=== PATIENT | female | born 1945 | race Caucasian/White ===

== ENCOUNTER → 2017-03-30 | Outpatient (CLI) | payer BC ==
[~2017-03-30] MED LIST: CALCTAB5 PO; CLRD24 PO; GLC5 PO; GLC500 PO; LISI5TAB3 PO; LRT5 PO; OCUVITE PO
--- NOTE | 2017-03-30 15:39 | MAMMOGRAPHY REPORT ---
BILATERAL DIGITAL SCREENING MAMMOGRAM WITH CAD: 03/30/2017 CLINICAL HISTORY: Routine screening. Patient has no complaints. TECHNIQUE: Bilateral CC and MLO views were obtained. Current study was also evaluated with a Comput er Aided Detection (CAD) system. COMPARISON: Comparison is made to exams dated: 03/17/2016 mammogram, 03/14/2015 mammogram, 03/05/2014 ma mmogram, 03/02/2013 mammogram, 03/01/2012 mammogram, and 02/26/2011 mammogram - [facility]. BREAST COMPOSITION: There are scattered areas of fibroglandular density in both breasts. FINDINGS: The parenchymal pattern is unchanged. No developing mass, architectural distortion or clus ter of suspicious microcalcifications is seen in either breast. No suspicious mass, architectural distortion or cluster of microcalcifications is seen. IMPRESSION: ACR BI-RADS CATEGORY 2: BENIGN There is no mammographic evidence of malignancy. A 1 year screening mammogram is recommended. The pa tient will receive written notification of the results. Approximately 10% of breast cancers are not detected with mammography. A negative mammographic report should not delay biopsy if a clinically suggestive mass is present. Yvonne Ricks M.D. ay/:03/30/2017 13:46:48 Hotel Associate: Jeanna CHINO(R)(M), [facility] letter sent: Normal 1/2 BI-RADS Code: ACR BI-RADS Category 2: Benign
== END | disposition home or self-care (01) ==
LOC: C.MAMM 10:53
PROVIDERS: ATTEND Obstetrics & Gynecology
DX: Z12.31 Encounter for screening mammogram for malignant neoplasm of breast (principal)

== ENCOUNTER → 2017-08-23 | Outpatient (CLI) | payer BC | END | disposition home or self-care (01) | LOC: C.PAPS 14:28 | PROVIDERS: ATTEND Obstetrics & Gynecology | DX: N87.0 Mild cervical dysplasia (principal) ==

== ENCOUNTER → 2017-09-06 | Day surgery (SDC) | payer BC ==
[2017-09-03 11:59] VITALS: BMI 24.0
[~2017-09-06] VITALS: Ht 175.3 cm; Wt 75.0 kg
[~2017-09-06] MED LIST changes: +ASPCH81X PO; +ATOR-22 PO; -CALCTAB5 PO; -CLRD24 PO; +CYAN500T13 PO; +DOCU-94 PO; +FENTANYL CITRATE INJ 50 MCG/1 ML 2 ML VIAL ONE; +FERR1TAB62 PO; -GLC5 PO; -GLC500 PO; +HYDR200T5 PO; +LIDOCAINE HCL 2% 2 ML VIAL (20MG/ML) ONE; +LISI-729 PO; -LISI5TAB3 PO; -LRT5 PO; +MECL1TAB42 PO; +METF-384 PO; +MINO5SOL6; +MULT-188 PO; +NAPR-1169 PO; -OCUVITE PO; +ONDA4TAB46 PO; +ONDANSETRON INJ 2 MG/ML 2 ML VIAL IV PRN; +PRED-301 PO; +PROPOFOL IV EMULSION 10 MG/ML 20 ML VIAL IV ONE; +REPA2TAB12 PO; +SITA100T3 PO; +TEMA15CA4 PO; +TRAM-10 PO; +VNTHFA/IN INH
[2017-09-06 08:07] VITALS: Ht 175.3 cm; Wt 75.0 kg
--- NOTE | 2017-09-06 08:33 | Endo History and Physical ---
History & Physical Date of Service: Sep 06, 2017. Chief Complaint: Anemia Referring Physician: Dr. coats History of Present Illness The patient presents for history of iron deficiency anemia. Her last colonoscopy was performed in 2008. Last upper endoscopy about 5 years ago. There is no family history of colorectal or stomach cancer. There is a family history of Styles's esophagus with a question of dysplasia and her brother. Past Surgical History Hx Cardiac Surgery: No Hx Internal Defibrillator: No Hx Pacemaker: No Hx Abdominal Surgery: Yes (CONIZATION, APPY) Hx of Implantable Prosthesis: No Hx Post-Op Nausea and Vomiting: No Hx Cancer Surgery: No Hx Thoracic Surgery: No Hx Orthopedic: Yes (LEFT WRIST NERVE REPAIR) Hx Urinary Tract Surgery: No Family History None Social History Smoking Status: Former Smoker Hx Substance Use: No Hx Alcohol Use: No Allergies Coded Allergies: Latex1 -Allergic Contact Dermititis (Verified Allergy, Unknown, SWELLING WITH MUCOUS MEMBRANES, 09/06/17) Sulfa Drugs (Verified Allergy, Unknown, "COMING OUT THROUGH MY PORES", 09/06/17) Current Medications Reported Home Medications Medications Dose Route/Sig Max Daily Dose Days Date Category Ferrous Sulfate 325 Mg Tab 1 Tab PO QAM 09/03/17 Reported Rogaine Extra Strength Fo (Minoxidil (Topical)) 5 % Radha 1 Dose PRN 09/03/17 Reported Prandin (Repaglinide) 2 Mg Tab 2 Mg PO QPM 09/03/17 Reported Aspirin Chewable (Aspirin) 81 Mg Chew 81 Mg PO QAM 09/03/17 Reported Vitamin B12 500MCG (Cyanocobalamin) 500 Mcg Tab 500 Mcg PO DAILY AT NOON 09/03/17 Reported Zofran (Ondansetron HCl) 4 Mg Tab 4 Mg PO Q8H PRN 09/03/17 Reported Restoril (Temazepam) 15 Mg Cap 15 Mg PO HS PRN 09/03/17 Reported Colace (Docusate Sodium) 100 Mg Cap 1 Cap PO BID 09/03/17 Reported Glucophage (Metformin Hcl) 1,000 Mg Tab 1,000 Mg PO BID 09/03/17 Reported Prednisone 5 Mg Tab 5 Mg PO DAILY PRN 09/03/17 Reported Januvia (Sitagliptin Phosphate) 100 Mg Tab 100 Mg PO QAM 09/03/17 Reported Plaquenil (Hydroxychloroquine Sulfate) 200 Mg Tab 2 Tab PO QPM 09/03/17 Reported Ultram (Tramadol HCl) 50 Mg Tab 25 Mg PO BID 09/03/17 Reported Meclizine Hcl 25 Mg Tab 1 Tab PO TID PRN 09/03/17 Reported Naprosyn (Naproxen) 500 Mg Tab 0.5 Tab PO BID 09/03/17 Reported Zestril (Lisinopril) 5 Mg Tab 5 Mg PO DAILY AT NOON 09/03/17 Reported Lipitor (Atorvastatin Calcium) 20 Mg Tab 20 Mg PO DAILY AT NOON 09/03/17 Reported Ventolin Hfa (Albuterol) 200 Puffs/67749 Mcg Aers 2-4 Puffs INH Q6H PRN 09/03/17 Reported Vital Signs Weight (Kilograms): 75.00 Height (Feet): 5 Height (Inches): 9 Date Time Temp Pulse Resp B/P (MAP) Pulse Ox O2 Delivery O2 Flow Rate FiO2 09/06/17 08:21 36.6 97 20 175/77 (109) 100 Room Air Physical Exam General Appearance: no apparent distress Respiratory/Chest: Auscultation: breath sounds normal Cardiovascular: Heart Auscultation: RRR Abdomen: Inspection & Palpation: soft Assessment and Plan Patient referred for evaluation of anemia. Given the iron deficiency will proceed with an upper endoscopy and colonoscopy for further evaluation. We have discussed the risks to include bleeding, infection, perforation, pain and aspiration. Plan EGD Colonoscopy
--- NOTE | 2017-09-06 09:13 | Discharge Instructions ---
Endoscopy Patient Instructions Date / Procedure(s) Performed Sep 06, 2017. Colonoscopy, EGD Allergy Information Coded Allergies: Latex1 -Allergic Contact Dermititis (Verified Allergy, Unknown, SWELLING WITH MUCOUS MEMBRANES, 09/06/17) Sulfa Drugs (Verified Allergy, Unknown, "COMING OUT THROUGH MY PORES", 09/06/17) Discharge Date / Findings Sep 06, 2017. Internal hemorrhoids Mild gastritis Medication Instructions Stopped Medication(s): STOPPED METFORMIN IRON ASA Restart Stopped Medication(s): Reported Home Medications Medications Dose Route/Sig Max Daily Dose Days Date Category Ferrous Sulfate 325 Mg Tab 1 Tab PO QAM 09/03/17 Reported Rogaine Extra Strength Fo (Minoxidil (Topical)) 5 % Radha 1 Dose PRN 09/03/17 Reported Prandin (Repaglinide) 2 Mg Tab 2 Mg PO QPM 09/03/17 Reported Aspirin Chewable (Aspirin) 81 Mg Chew 81 Mg PO QAM 09/03/17 Reported Vitamin B12 500MCG (Cyanocobalamin) 500 Mcg Tab 500 Mcg PO DAILY AT NOON 09/03/17 Reported Zofran (Ondansetron HCl) 4 Mg Tab 4 Mg PO Q8H PRN 09/03/17 Reported Restoril (Temazepam) 15 Mg Cap 15 Mg PO HS PRN 09/03/17 Reported Colace (Docusate Sodium) 100 Mg Cap 1 Cap PO BID 09/03/17 Reported Glucophage (Metformin Hcl) 1,000 Mg Tab 1,000 Mg PO BID 09/03/17 Reported Prednisone 5 Mg Tab 5 Mg PO DAILY PRN 09/03/17 Reported Januvia (Sitagliptin Phosphate) 100 Mg Tab 100 Mg PO QAM 09/03/17 Reported Plaquenil (Hydroxychloroquine Sulfate) 200 Mg Tab 2 Tab PO QPM 09/03/17 Reported Ultram (Tramadol HCl) 50 Mg Tab 25 Mg PO BID 09/03/17 Reported Meclizine Hcl 25 Mg Tab 1 Tab PO TID PRN 09/03/17 Reported Naprosyn (Naproxen) 500 Mg Tab 0.5 Tab PO BID 09/03/17 Reported Zestril (Lisinopril) 5 Mg Tab 5 Mg PO DAILY AT NOON 09/03/17 Reported Lipitor (Atorvastatin Calcium) 20 Mg Tab 20 Mg PO DAILY AT NOON 09/03/17 Reported Ventolin Hfa (Albuterol) 200 Puffs/40013 Mcg Aers 2-4 Puffs INH Q6H PRN 09/03/17 Reported Provider Instructions Activity Restrictions - No exercising or heavy lifting for 24 hours. - Do not drink alcohol the day of the procedure. - Do not drive a car or operate machinery until the day after the procedure. - Do not make any important decisions or sign important papers in 24 hours after the procedure. Following Day: - Return to full activity which may include returning to work/school. Diet Start your diet with liquids and light foods (jello, soup, juice, toast). Then eat your usual diet if not nauseated. Treatment For Common After Affects For mild abdominal pain, bloating, or excessive gas: - Rest - Eat lightly - Lie on right side Follow-Up Information Follow-up with DR. LANGLEY for monitoring of your blood count No evidence of gastrointestinal bleeding seen today CT of the abdomen to evaluate for small bowel lesions or masses Anesthesia Information What You Should Know You have had a procedure that required some medicine to reduce anxiety and discomfort. This treatment is called moderate sedation. After receiving the treatment, you may be sleepy, but you will be able to breathe on your own. The effects of the treatment may last for several hours. Follow these instructions along with Activity/Diet recommendations noted above: * Do NOT do anything where dizziness or clumsiness would be dangerous. * Rest quietly at home today, then you can be up and about tomorrow. * Have a responsible person stay with you the rest of today. * You may have had an I.V. today. If so, you may take the dressing off later today. Recommendations Call your doctor if: * Trouble breathing * Continuous vomiting for more than 24 hours * Temperature above 101 degrees * Severe abdominal pain or bloating * Pain not relieved by pain medicine ordered * There is increased drainage or redness from any incision * A large amount of rectal bleeding greater than 2-3 tablespoons. (If you had a polyp/s removed or have hemorrhoids, a small amount of blood - from the rectum is to be expected.) * You have any unanswered questions or concerns. IN THE EVENT OF A SERIOUS EMERGENCY, GO TO THE NEAREST EMERGENCY ROOM Your discharge instructions were prepared by provider Kana Garcia. Patient Instructions Signature Page Jayy Wakefield Patient (or Guardian) Signature/Date: I have read and understand the instructions given to me by my caregivers. Caregiver/RN/Doctor Signature/Date: The above-named patient and/or guardian has received patient instructions on this date. + Original Patient Signature Page (only) stays with chart. Please make copy for patient.
--- NOTE | 2017-09-06 09:16 | GI REPORT ---
Procedure Date: 09/06/2017 8:42 AM Procedure: Upper GI endoscopy Indications: Iron deficiency anemia Medicines: Monitored Anesthesia Care Complications: No immediate complications. Estimated blood loss: Minimal. Estimated Blood Loss: Estimated blood loss was minimal. Procedure: Pre-Anesthesia Assessment: - Prior to the procedure, a History and Physical was performed, and patient medications, allergies and sensitivities were reviewed. The patient's tolerance of previous anesthesia was reviewed. - The risks and benefits of the procedure and the sedation options and risks were discussed with the patient. All questions were answered and informed consent was obtained. - Patient identification and proposed procedure were verified prior to the procedure by the physician, the nurse and the collar baster. The procedure was verified in the procedure room. - Pre-procedure physical examination revealed no contraindications to sedation. - ASA Grade Assessment: III - A patient with severe systemic disease. - After reviewing the risks and benefits, the patient was deemed in satisfactory condition to undergo the procedure. - The anesthesia plan was to use monitored anesthesia care (MAC). - Immediately prior to administration of medications, the patient was re-assessed for adequacy to receive sedatives. - The heart rate, respiratory rate, oxygen saturations, blood pressure, adequacy of pulmonary ventilation, and response to care were monitored throughout the procedure. - The physical status of the patient was re-assessed after the procedure. After obtaining informed consent, the endoscope was passed under direct vision. Throughout the procedure, the patient's blood pressure, pulse, and oxygen saturations were monitored continuously. The scope was introduced through the mouth, and advanced to the third part of duodenum. The upper GI endoscopy was accomplished without difficulty. The patient tolerated the procedure well. Findings: The examined esophagus was normal. The Z-line was regular and was found 37 cm from the incisors. Diffuse minimal inflammation characterized by granularity was found in the entire examined stomach. Biopsies were taken with a cold forceps for histology. Estimated blood loss was minimal. The examined duodenum was normal. Biopsies for histology were taken with a cold forceps for evaluation of celiac disease. Estimated blood loss was minimal. Impression: - Normal esophagus. - Z-line regular, 37 cm from the incisors. - Gastritis. Biopsied. - Normal examined duodenum. Biopsied. Recommendation: - Perform a colonoscopy today. - Await pathology results. Kana Garcia D.O. Kana Garcia DO 09/06/2017 9:16:07 AM This report has been signed electronically. Note Initiated On: 09/06/2017 8:42 AM I attest to the content of the Intraoperative Record and orders documented therein, exceptions below
--- NOTE | 2017-09-06 09:19 | GI REPORT ---
Procedure Date: 09/06/2017 8:57 AM Procedure: Colonoscopy Indications: Screening for colorectal malignant neoplasm Medicines: Monitored Anesthesia Care Complications: No immediate complications. Estimated blood loss: Minimal. Estimated Blood Loss: Estimated blood loss: none. Procedure: Pre-Anesthesia Assessment: - Prior to the procedure, a History and Physical was performed, and patient medications, allergies and sensitivities were reviewed. The patient's tolerance of previous anesthesia was reviewed. - The risks and benefits of the procedure and the sedation options and risks were discussed with the patient. All questions were answered and informed consent was obtained. - Patient identification and proposed procedure were verified prior to the procedure by the physician, the nurse and the spool worker. The procedure was verified in the procedure room. - Pre-procedure physical examination revealed no contraindications to sedation. - ASA Grade Assessment: III - A patient with severe systemic disease. - After reviewing the risks and benefits, the patient was deemed in satisfactory condition to undergo the procedure. - The anesthesia plan was to use monitored anesthesia care (MAC). - Immediately prior to administration of medications, the patient was re-assessed for adequacy to receive sedatives. - The heart rate, respiratory rate, oxygen saturations, blood pressure, adequacy of pulmonary ventilation, and response to care were monitored throughout the procedure. - The physical status of the patient was re-assessed after the procedure. After I obtained informed consent, the scope was passed under direct vision. Throughout the procedure, the patient's blood pressure, pulse, and oxygen saturations were monitored continuously. The scope was introduced through the anus and advanced to the terminal ileum. The colonoscopy was performed without difficulty. The patient tolerated the procedure well. The quality of the bowel preparation was good. Findings: The digital rectal exam findings include non-thrombosed external hemorrhoids. Pertinent negatives include normal sphincter tone. The terminal ileum appeared normal. Internal hemorrhoids were found during retroflexion. The hemorrhoids were mild. The exam was otherwise without abnormality. Impression: - Non-thrombosed external hemorrhoids found on digital rectal exam. - The examined portion of the ileum was normal. - Internal hemorrhoids. - The examination was otherwise normal. - No specimens collected. Recommendation: - Discharge patient to home (ambulatory). - Advance diet as tolerated today. - Perform CT scan (computed tomography) of the abdomen with contrast at appointment to be scheduled (r/o small bowel mass). - Repeat colonoscopy in 10 years for screening purposes. Kana Garcia D.O. Kana Garcia, 09/06/2017 9:18:29 AM This report has been signed electronically. Note Initiated On: 09/06/2017 8:57 AM I attest to the content of the Intraoperative Record and orders documented therein, exceptions below
[2017-09-06 09:46] VITALS: BP 165/76; PULSE 78; O2SAT 100
--- NOTE | 2017-09-06 10:02 | Anesthesiology Progress Note ---
Anesthesia Post Op Note Date & Time Sep 06, 2017 at 10:02 Vital Signs Pain Intensity: 0 Vital Signs Past 12 Hours Date Time Temp Pulse Resp B/P (MAP) Pulse Ox O2 Delivery O2 Flow Rate FiO2 09/06/17 09:31 76 20 153/77 (102) 100 Room Air 09/06/17 09:16 78 18 136/78 (97) 100 Room Air 09/06/17 08:21 36.6 97 20 175/77 (109) 100 Room Air Notes Mental Status: alert / awake / arousable, participated in evaluation Pt Amnestic to Procedure: Yes Nausea / Vomiting: adequately controlled Pain: adequately controlled Airway Patency, RR, SpO2: stable & adequate BP & HR: stable & adequate Hydration State: stable & adequate Anesthetic Complications: no major complications apparent
== END | disposition home or self-care (01) ==
LOC: C.GI 07:48
PROVIDERS: ATTEND Internal Medicine Gastroenterology
DX: Z12.11 Encounter for screening for malignant neoplasm of colon (principal); K64.4 Residual hemorrhoidal skin tags; K64.8 Other hemorrhoids; D50.9 Iron deficiency anemia, unspecified; J45.909 Unspecified asthma, uncomplicated; K29.70 Gastritis, unspecified, without bleeding; E11.22 Type 2 diabetes mellitus with diabetic chronic kidney disease; N18.9 Chronic kidney disease, unspecified; I10 Essential (primary) hypertension; Z91.040 Latex allergy status; Z88.2 Allergy status to sulfonamides; Z90.89 Acquired absence of other organs; Z98.890 Other specified postprocedural states; Z87.891 Personal history of nicotine dependence; Z79.82 Long term (current) use of aspirin; Z79.899 Other long term (current) drug therapy
CPT/HCPCS: 43239; G0121

== ENCOUNTER → 2017-09-14 | Outpatient (CLI) | payer BC ==
[~2017-09-14] MED LIST changes: -FENTANYL CITRATE INJ 50 MCG/1 ML 2 ML VIAL ONE; -LIDOCAINE HCL 2% 2 ML VIAL (20MG/ML) ONE; -MULT-188 PO; -ONDANSETRON INJ 2 MG/ML 2 ML VIAL IV PRN; +OPTIRAY 320 IV PRN; -PROPOFOL IV EMULSION 10 MG/ML 20 ML VIAL IV ONE
[2017-09-14 12:52] LABS: BLOOD UREA NITROGEN 22 mg/dl (7-18); BUN/CREATININE RATIO 19.6 (10-20); CALCIUM 9.5 mg/dl (8.5-10.1); CARBON DIOXIDE 27 mmol/L (21-32); CHLORIDE 100 mmol/L (98-107); GLUCOSE 124 mg/dl (70-99); POTASSIUM 4.6 mmol/L (3.5-5.1); SODIUM 136 mmol/L (136-145)
--- NOTE | 2017-09-14 13:32 | DIAGNOSTIC IMAGING REPORT ---
CT SCAN OF THE ABDOMEN AND PELVIS WITH IV CONTRAST CLINICAL HISTORY: Iron deficiency. Anemia. COMPARISON STUDY: Abdominal CT dated 04/05/2010. TECHNIQUE: Following the IV administration of 94 cc of Optiray 320, CT scan of the abdomen and pelvis is performed from the lung bases to the proximal femora. Images are reviewed in the axial, sagittal, and coronal planes. IV contrast was administered without complication. A dose lowering technique was utilized adhering to the principles of ALARA. CT DOSE: 801.67 mGycm FINDINGS: Lung bases: The heart is normal in size and without pericardial effusion. The coronary arteries are calcified. The lung bases are clear. There is a small hiatal hernia. Liver: The contrast-enhanced liver is normal in size, contour, and attenuation. There is no intrahepatic biliary ductal dilatation. The hepatic veins and portal veins are patent. Gallbladder: Unremarkable. Spleen: Normal in size and attenuation. Pancreas: Unremarkable. Adrenal glands: Unremarkable. Kidneys: The contrast enhanced kidneys demonstrate cortical atrophy and are without hydronephrosis. The kidneys enhance symmetrically. Abdominal vasculature: The abdominal aorta is normal in course and caliber noting mild atherosclerotic calcification. Bowel: There is a tiny duodenal diverticulum. Moderate colonic fecal retention is observed. No bowel obstruction is seen. The appendix is not identified. Peritoneum: There is no intraperitoneal free air or abdominal ascites. Lymphadenopathy: None. Pelvic viscera: The bladder, uterus, and adnexa are normal as visualized. Findings suggest pelvic floor prolapse. Skeletal structures: The skeletal structures are osteopenic. There is mild lumbosacral spondylosis and scoliosis. Sclerotic change is noted in the sacroiliac joints. No lytic or blastic lesions are seen. IMPRESSION: 1. There are no acute infectious or inflammatory findings in the abdomen or pelvis. 2. The liver and spleen are normal in size. 3. Small hiatal hernia. 4. Additional findings as above. Electronically signed by: Yao Molina M.D. 09/14/2017 1:30 PM Dictated Date/Time: 09/14/2017 1:23 PM
== END | disposition home or self-care (01) ==
LOC: C.CTS 11:37
PROVIDERS: ATTEND Internal Medicine Gastroenterology
DX: D50.8 Other iron deficiency anemias (principal)

== ENCOUNTER 2017-12-10 21:15 | Inpatient (IN) | payer BC, OTHER ==
[~2017-12-10] VITALS: Ht 174 cm; Wt 73.8 kg
[~2017-12-10 21:15] MED LIST changes: +ASCA500 PO; +CLR10 PO; +MULT-190 PO; -OPTIRAY 320 IV PRN; +PRLSR20 PO
--- NOTE | 2017-12-10 22:48 | DIAGNOSTIC IMAGING REPORT ---
CT HEAD WITHOUT CONTRAST (CT) CLINICAL HISTORY: Head trauma. Dizziness. Headache. COMPARISON STUDY: No previous studies for comparison. TECHNIQUE: Axial CT of the brain is performed from the vertex to the skull base. IV contrast was not administered for this examination. A dose lowering technique was utilized adhering to the principles of ALARA. CT DOSE: 537.48 mGy.cm FINDINGS: No intra or extra-axial mass lesions are visualized. There is no CT evidence of acute cortical infarction. There is no evidence of midline shift. There is no acute hemorrhage. No calvarial fractures are visualized. There are patchy white matter hypodensities likely on a small vessel basis. There is no evidence of pathologic ventricular dilatation. There is no evidence of acute sinusitis IMPRESSION: No acute intracranial findings Electronically signed by: Donald Maguire M.D. 12/10/2017 10:47 PM Dictated Date/Time: 12/10/2017 10:46 PM
[2017-12-10 23:56] LABS: BASO % 0.3 %; BASO ABS # 0.02 K/uL (0-0.2); EOS % 1.3 %; HEMATOCRIT 32.5 % (37-47); HEMOGLOBIN 11.8 g/dL (12.0-16.0); IG# 0.09 K/uL (0.00-0.02); LYMPH ABS # 1.85 K/uL (1.2-3.4); MEAN CELL VOLUME 90.5 fL (80-100); MEAN CORPUSCULAR HEMOGLOBIN 32.9 pg (25-34); MEAN CORPUSCULAR HGB CONC 36.3 g/dl (32-36); MEAN PLATELET VOLUME 8.2 fL (7.4-10.4); MONO % 15.4 %; MONO ABS # 1.19 K/uL (0.11-0.59); NEUT % 57.8 %; NEUT ABS # 4.46 K/uL (1.4-6.5); PLATELET COUNT 204 K/uL (130-400); RED CELL DISTRIBUTION WIDTH CV 15.1 % (11.5-14.5); RED CELL DISTRIBUTION WIDTH SD 50.1 fL (36.4-46.3); WHITE BLOOD COUNT 7.71 K/uL (4.8-10.8)
[2017-12-11] VITALS (7 sets, daily range): BP systolic 153–188; BP diastolic 72–91; PULSE 80–108; TEMP 36.7–36.9; O2SAT 95–99; Ht 174 cm; Wt 73.8 kg
[2017-12-11 00:13] LABS: ALBUMIN 4.3 gm/dl (3.4-5.0); CALCIUM 9.2 mg/dl (8.5-10.1); CREATININE 0.93 mg/dl (0.60-1.20); POTASSIUM 4.2 mmol/L (3.5-5.1)
[2017-12-11 00:16] LABS: TOTAL PROTEIN 7.2 gm/dl (6.4-8.2)
[2017-12-11] MEDS ORDERED: SODIUM CHLORIDE 0.9% 1000ML 1,000 ML IV STA (01:11)
[2017-12-11] MEDS ORDERED: SALI1SPR3 NAE (01:58)
[2017-12-11] MEDS: SODIUM CHLORIDE 0.9% 500ML 500 ML IV SCH ×2 (02:08→04:00)
--- NOTE | 2017-12-11 02:21 | EMERGENCY ROOM VISIT NOTE ---
ED Visit Note First contact with patient: 22:07 Patient seen and examined at bedside after discussion with physician glass ribbon machine operator assistant. Patient with symptomatic hyponatremia. Hyponatremic possibly multifactorial, but including self-induced increased hydration likely leading to some delusional aspect. Patient with poor intake recently after medication adjustments and recent sternal fracture. No evidence of significant hyperglycemia creating pseudohyponatremia. No evidence of acute renal failure. Discussed with patient gentle IV fluid hydration. Patient now agreeable with chest x-ray, PA to order.
--- NOTE | 2017-12-11 03:00 | EMERGENCY ROOM VISIT NOTE ---
History First contact with patient: 22:07 Chief Complaint: DIZZY Stated Complaint: HYPONATREMIA Nursing Triage Summary: Patient was seen at PCP today for follow up after fall at home 2 weeks ago. Patient fractured sternum, hit knee and head in fall. Yesterday patient notes that she had blurred vision, dizziness and nausea. Patient notes nausea is chronic. Patient has been taking pain medications since fall so she's not sure if nausea is from pain medications. Patient states that PCP suggested a CT scan and told her to go to ED. History of Present Illness The patient is a 72 year old female who presents to the Emergency Room with complaints of dizziness, lightheadedness and blurred vision for the past 2 days. The patient states that yesterday, she noticed some dizziness and lightheadedness. She has felt slightly unsteady on her feet and has been holding onto things in order to walk. The patient states that she has felt "spacey" and seems to have difficulty with her memory. She has some mild pain in the back of her head. The patient also reports that she has been nauseous and has not been eating much. She does admit to some chronic nausea and has Zofran for this. The patient rates her overall discomfort a 5/10. She does admit that she had a fall 2 weeks ago. She states this was a mechanical fall. She was seen by her primary care provider's office at that time and diagnosed with a fractured sternum. She does state that she hit her head with this fall but has not had a CT scan of her head. She does not take anticoagulants. The patient also reports she has been taking pain medication for the pain in her sternum. She was initially taking hydrocodone but over the past few days has only been taking Tylenol and tramadol. She states that she is slightly sleep deprived because she is finding it difficult to sleep due to her sternum pain. She was seen by her primary care provider today in the office and had blood work performed as an outpatient. She states that her PCP told her that if her symptoms continue, she should come to the ER for a CT scan of her head. She denies any new injuries, shortness of breath or fevers. Review of Systems A complete 10 point review of systems was reviewed with the patient with pertinent positives and negatives as per history of present illness. All else were negative. Past Medical/Surgical History Medical Problems: (1) Asthma (2) Chronic kidney disease (3) Diabetes mellitus, type II (4) Hypertension (5) Hyponatremia (6) Neuropathy Social History Smoking Status: Former Smoker Alcohol Use: none Marital Status: Housing Status: lives with significant other Current/Historical Medications Scheduled Ascorbic Acid (Vitamin C), 500 MG PO QAM Aspirin (Aspirin Chewable), 81 MG PO QAM Atorvastatin (Lipitor), 20 MG PO DAILY AT NOON Cyanocobalamin (Vitamin B12 500MCG), 500 MCG PO DAILY AT NOON Docusate Sodium (Colace), 1 CAP PO BID Ferrous Sulfate (Ferrous Sulfate), 1 TAB PO QAM Hydroxychloroquine Sulfate (Plaquenil), 2 TAB PO QPM Lisinopril (Zestril), 5 MG PO DAILY AT NOON Loratadine (Claritin), 10 MG PO DAILY Metformin Hcl (Glucophage), 1,000 MG PO BID Minoxidil (Topical) (Rogaine Extra Strength Fo), 1 DOSE PRN Naproxen (Naprosyn), 500 MG PO BID Ocuvite Preservision (Ocuvite Preservision), 1 TAB PO DAILY Omeprazole (Prilosec), 20 MG PO AMHS Repaglinide (Prandin), 2 MG PO NOON Sitagliptin Phosphate (Januvia), 100 MG PO QAM Tramadol (Ultram), 50 MG PO BID Scheduled PRN Albuterol Hfa (Ventolin Hfa), 2-4 PUFFS INH Q6H PRN for Shortness of Breath Meclizine Hcl (Meclizine Hcl), 1 TAB PO TID PRN for VERTIGO Ondansetron Hcl (Zofran), 4 MG PO Q8H PRN for Nausea Prednisone (Prednisone), 5 MG PO DAILY PRN for "ARTHRITIC FLARE UP" Saline (Saline Nasal [place]), 1-2 SPRAYS ANILA UD PRN for DRYNESS Temazepam (Restoril), 15 MG PO HS PRN for Sleep Physical Exam Vital Signs Date Time Temp Pulse Resp B/P (MAP) Pulse Ox O2 Delivery O2 Flow Rate FiO2 12/10/17 22:49 90 18 162/75 97 Room Air 12/10/17 21:20 36.7 102 19 171/78 97 Room Air Physical Exam VITALS: Vitals are noted on the nurse's note and reviewed by myself. Vital signs stable. GENERAL: This is a 72-year-old female, in no acute distress, nondiaphoretic, well-developed well-nourished. SKIN: The skin was without rashes. HEAD: Normocephalic atraumatic. EARS: External auditory canals clear, tympanic membranes pearly sethi without erythema or effusion bilaterally. EYES: Pupils equal round and reactive to light and accommodation. Extraocular movements intact. MOUTH: Mucous membranes moist. NECK: Supple without nuchal rigidity. No tenderness of the cervical spine. HEART: Regular rate and rhythm without murmurs gallops or rubs. LUNGS: Clear to auscultation bilaterally without wheezes, rales or rhonchi. MUSCULOSKELETAL: Tenderness to palpation of the anterior chest wall over the sternum. Full range of motion all extremities. Strength 5/5. NEURO: Patient was alert and oriented to person place and time. No focal neuro deficits. Normal finger to nose testing bilaterally. Medical Decision & Procedures ER Provider Diagnostic Interpretation: CT HEAD WITHOUT CONTRAST (CT) FINDINGS: No intra or extra-axial mass lesions are visualized. There is no CT evidence of acute cortical infarction. There is no evidence of midline shift. There is no acute hemorrhage. No calvarial fractures are visualized. There are patchy white matter hypodensities likely on a small vessel basis. There is no evidence of pathologic ventricular dilatation. There is no evidence of acute sinusitis IMPRESSION: No acute intracranial findings CHEST 1 VIEW: No acute cardiopulmonary abnormalities. -Interpreted by myself Laboratory Results 12/10/17 23:30 Red Blood Count 3.59, Mean Corpuscular Volume 90.5, Mean Corpuscular Hemoglobin 32.9, Mean Corpuscular Hemoglobin Concent 36.3, Mean Platelet Volume 8.2, Neutrophils (%) (Auto) 57.8, Lymphocytes (%) (Auto) 24.0, Monocytes (%) (Auto) 15.4, Eosinophils (%) (Auto) 1.3, Basophils (%) (Auto) 0.3, Neutrophils # (Auto ) 4.46, Lymphocytes # (Auto) 1.85, Monocytes # (Auto) 1.19, Eosinophils # (Auto ) 0.10, Basophils # (Auto) 0.02 12/10/17 23:30 Test 12/10/17 23:30 3/10/18 01:12 White Blood Count 7.71 K/uL (4.8-10.8) Red Blood Count 3.59 M/uL (4.2-5.4) Hemoglobin 11.8 g/dL (12.0-16.0) Hematocrit 32.5 % (37-47) Mean Corpuscular Volume 90.5 fL (80-100) Mean Corpuscular Hemoglobin 32.9 pg (25-34) Mean Corpuscular Hemoglobin Concent 36.3 g/dl (32-36) Platelet Count 204 K/uL (130-400) Mean Platelet Volume 8.2 fL (7.4-10.4) Neutrophils (%) (Auto) 57.8 % Lymphocytes (%) (Auto) 24.0 % Monocytes (%) (Auto) 15.4 % Eosinophils (%) (Auto) 1.3 % Basophils (%) (Auto) 0.3 % Neutrophils # (Auto) 4.46 K/uL (1.4-6.5) Lymphocytes # (Auto) 1.85 K/uL (1.2-3.4) Monocytes # (Auto) 1.19 K/uL (0.11-0.59) Eosinophils # (Auto) 0.10 K/uL (0-0.5) Basophils # (Auto) 0.02 K/uL (0-0.2) RDW Standard Deviation 50.1 fL (36.4-46.3) RDW Coefficient of Variation 15.1 % (11.5-14.5) Immature Granulocyte % (Auto) 1.2 % Immature Granulocyte # (Auto) 0.09 K/uL (0.00-0.02) Anion Gap 8.0 mmol/L (3-11) Est Creatinine Clear Calc Drug Dose 55.3 ml/min Estimated GFR () 70.7 Estimated GFR (Non- 61.0 BUN/Creatinine Ratio 18.5 (10-20) Osmolality 263 mOsm/kg (280-300) Calcium Level 9.2 mg/dl (8.5-10.1) Total Bilirubin 0.6 mg/dl (0.2-1) Aspartate Amino Transf (AST/SGOT) 9 U/L (15-37) Alanine Aminotransferase (ALT/SGPT) 21 U/L (12-78) Alkaline Phosphatase 58 U/L (45-117) Total Protein 7.2 gm/dl (6.4-8.2) Albumin 4.3 gm/dl (3.4-5.0) Globulin 2.9 gm/dl (2.5-4.0) Albumin/Globulin Ratio 1.5 (0.9-2) Urine Color YELLOW Urine Appearance CLEAR (CLEAR) Urine pH 5.0 (4.5-7.5) Urine Specific [place] 1.020 (1.000-1.030) Urine Protein NEG (NEG) Urine Glucose (UA) NEG (NEG) Urine Ketones TRACE (NEG) Urine Occult Blood NEG (NEG) Urine Nitrite NEG (NEG) Urine Bilirubin NEG (NEG) Urine Urobilinogen NEG (NEG) Urine Leukocyte Esterase SMALL (NEG) Urine WBC (Auto) 5-10 /hpf (0-5) Urine RBC (Auto) 0-4 /hpf (0-4) Urine Hyaline Casts (Auto) 1-5 /lpf (0-5) Urine Epithelial Cells (Auto) 10-20 /lpf (0-5) Urine Bacteria (Auto) NEG (NEG) Urine Osmolality 516 mOms/kg (500-800) ED Course The patient was evaluated as above. CT head was performed and read by radiology as above. I met with the patient and discussed her outpatient laboratory findings. She is agreeable to having labs performed. Patient was reevaluated and findings were discussed. She is agreeable to admission. Case was discussed with the [facility], Dr. Paul. She agreed to evaluate the patient for admission. Medical Decision Differential diagnosis includes intracranial hemorrhage, CVA, TIA, electrolyte abnormality, infection, among others. The patient is a 72-year-old female who presents today complaining of dizziness , lightheadedness and vision changes over the past [address] of the head was performed and was unremarkable. Patient had outpatient labs performed today. These were obtained by case management and reviewed by myself and did reveal a sodium of 126. Labs today revealed sodium of 124, which is likely the source of the patient's symptoms. She has not been eating or drinking much recently and may be dehydrated. Serum osmolality was slightly low at 263. Urinalysis and urine osmolality pending. Chest x-ray shows no acute cardiopulmonary abnormalities. Patient will be admitted to the [facility] service for further evaluation and treatment of hyponatremia. The patient was independently evaluated by Dr. Liang, ED attending physician , who agreed with my assessment and treatment plan. Head Trauma GCS Score: 15 Medication Reconcilliation Current Medication List: was personally reviewed by me Blood Pressure Screening Patient's blood pressure: Elevated blood pressure (will be followed by hospitalist) Impression Primary Impression: Hyponatremia Departure Information Referrals Parrish Govea D.O. (PCP) Patient Instructions My [facility]
[2017-12-11] MEDS ORDERED: MoRPHine SULFATE 2 MG/ML CARP IV PRN (04:00)
[2017-12-11] MEDS ORDERED: TEMAZEPAM 15 MG CAP PO PRN (04:00)
[2017-12-11] MEDS ORDERED: SODIUM CHLORIDE 0.65% NA SOLN 45 ML (OCEAN) NAE PRN (04:00)
[2017-12-11] MEDS ORDERED: POLYETHYLENE (MIRALAX) 17 GM PACK PO PRN (04:00)
[2017-12-11] MEDS ORDERED: ALBUTEROL HFA 8 GM INHALER INH PRN (04:00)
[2017-12-11] MEDS ORDERED: ONDANSETRON INJ 2 MG/ML 2 ML VIAL IV PRN (04:00)
[2017-12-11] MEDS ORDERED: DEXTROSE 50% 50 ML SYR IV PRN (04:15)
[2017-12-11] MEDS ORDERED: GLUCAGON FOR INJ 1 MG VIAL SQ PRN (04:15)
[2017-12-11] MEDS ORDERED: GLUCOSE 40% GEL 15 GM TUBE PO PRN (04:15)
[2017-12-11] MEDS ORDERED: GLUCOSE 10 TABS/TUBE PO PRN (04:15)
--- NOTE | 2017-12-11 04:16 | History and Physical ---
History & Physical Date & Time of Service: Dec 11, 2017 at 04:04 Chief Complaint: Hyponatremia Primary Care Physician: Parrish Govea D.O. History of Present Illness Source: patient, clinic records, hospital records The patient is a 72-year-old diabetic female who presents to the ER with complaints of dizziness, lightheadedness and blurred vision for the past 2 days. She reports suffering a mechanical fall 2 weeks ago where she had hit her head and fractured her sternum. She has been managed by her outpatient PCP for sternal pain with Tylenol tramadol and naproxen. She reports a history of chronic nausea and takes Zofran regularly. She reports drinking water excessively to stay hydrated but has not been eating as robustly as she usually does. She states that she has felt spacey and seems to have difficulties remembering thanks this has persisted for approximately 2 days. She does have some mild pain in the back of her head. CT scan this evening in the ER was negative for acute intracranial abnormality. She does not take anticoagulants. She reports being started on hydrocodone and then baclofen as trials to manage her sternal pain in the last 2 weeks, however these made her more spacey and she stopped them subsequently. Also in the last 2 weeks, she has suffered significant insomnia and restless leg syndrome secondary to the pain in her chest. She came to the ER this evening to obtain a CT scan of her head was found to have a sodium of 124. Review of systems is otherwise negative including no cough fever chills abdominal pain diarrhea shortness of breath or other symptoms. We did discuss her concerns of receiving insulin; she does not want to receive insulin as an inpatient. We discussed that she would receive Januvia with Metformin and Prandin held. In the event that her sugars increase , Prandin can be restarted. Of note she is on Lasix as needed and reports taking it 2 weeks ago one time. She felt at that time she had some leg swelling which is not present today. Past Medical/Surgical History Medical Problems: (1) Diabetes mellitus, type II Status: Chronic (2) Disc degeneration, lumbar Status: Chronic (3) Erythema nodosum Status: Chronic (4) Gastroparesis Status: Chronic (5) GERD (gastroesophageal reflux disease) Status: Chronic (6) HTN (hypertension) Status: Chronic (7) Hypertension Status: Chronic (8) Inflammatory polyarthritis Status: Chronic (9) Osteoporosis Status: Chronic Family History CVA MOTHER FH: lung cancer FATHER FH: stomach cancer MOTHER Type 2 diabetes mellitus BROTHER Social History Smoking Status: Former Smoker (In college only) Smokeless Tobacco Use: No Alcohol Use: none Drug Use: none Marital Status: Housing status: lives with significant other Occupational Status: retired Immunizations History of Influenza Vaccine: Yes History of Tetanus Vaccine?: Yes History of Pneumococcal: Yes History of Hepatitis B Vaccine: No Allergies Coded Allergies: Latex1 -Allergic Contact Dermititis (Verified Allergy, Unknown, SWELLING WITH MUCOUS MEMBRANES, 12/11/17) Sulfa Drugs (Verified Adverse Reaction, Unknown, "COMING OUT THROUGH MY PORES", 12/11/17) Home Medications Scheduled Ascorbic Acid (Vitamin C), 500 MG PO QAM Aspirin (Aspirin Chewable), 81 MG PO QAM Atorvastatin (Lipitor), 20 MG PO DAILY AT NOON Cyanocobalamin (Vitamin B12 500MCG), 500 MCG PO DAILY AT NOON Docusate Sodium (Colace), 1 CAP PO BID Ferrous Sulfate (Ferrous Sulfate), 1 TAB PO QAM Hydroxychloroquine Sulfate (Plaquenil), 2 TAB PO QPM Lisinopril (Zestril), 5 MG PO DAILY AT NOON Loratadine (Claritin), 10 MG PO DAILY Metformin Hcl (Glucophage), 1,000 MG PO BID Minoxidil (Topical) (Rogaine Extra Strength Fo), 1 DOSE PRN Naproxen (Naprosyn), 500 MG PO BID Ocuvite Preservision (Ocuvite Preservision), 1 TAB PO DAILY Omeprazole (Prilosec), 20 MG PO AMHS Repaglinide (Prandin), 2 MG PO NOON Sitagliptin Phosphate (Januvia), 100 MG PO QAM Tramadol (Ultram), 50 MG PO BID Scheduled PRN Albuterol Hfa (Ventolin Hfa), 2-4 PUFFS INH Q6H PRN for Shortness of Breath Meclizine Hcl (Meclizine Hcl), 1 TAB PO TID PRN for VERTIGO Ondansetron Hcl (Zofran), 4 MG PO Q8H PRN for Nausea Prednisone (Prednisone), 5 MG PO DAILY PRN for "ARTHRITIC FLARE UP" Saline (Saline Nasal [place]), 1-2 SPRAYS ANILA UD PRN for DRYNESS Temazepam (Restoril), 15 MG PO HS PRN for Sleep Review of Systems At least 10 systems were reviewed and negative except as indicated in HPI. Physical Exam Vital Signs Date Time Temp Pulse Resp B/P (MAP) Pulse Ox O2 Delivery O2 Flow Rate FiO2 12/11/17 01:45 98 18 193/80 97 190/91 158/81 12/11/17 01:45 105 20 158/81 99 Room Air 12/10/17 22:49 90 18 162/75 97 Room Air 12/10/17 21:20 36.7 102 19 171/78 97 Room Air General Appearance: WD/WN, no apparent distress Head: normocephalic, atraumatic Eyes: normal inspection, PERRL, sclerae normal ENT: normal ENT inspection, hearing grossly normal, pharynx normal, + pertinent finding (Mucous membranes dry) Neck: supple, trachea midline Respiratory/Chest: lungs clear, normal breath sounds, no respiratory distress, no accessory muscle use, + pertinent finding (Tenderness to palpation in center of chest, well-healed ecchymosis on right breast.) Cardiovascular: regular rate, rhythm, no edema, no gallop, no JVD, no murmur, normal peripheral pulses Abdomen/GI: normal bowel sounds, non tender, soft, no organomegaly Extremities/Musculoskelatal: normal inspection, no calf tenderness, no pedal edema, normal range of motion Neurologic/Psych: collection specialist II-XII nml as tested, no motor/sensory deficits, alert, normal mood/affect, oriented x 3 Skin: normal color, no rash Diagnostics Laboratory Results 12/10/17 23:30 Red Blood Count 3.59, Mean Corpuscular Volume 90.5, Mean Corpuscular Hemoglobin 32.9, Mean Corpuscular Hemoglobin Concent 36.3, Mean Platelet Volume 8.2, Neutrophils (%) (Auto) 57.8, Lymphocytes (%) (Auto) 24.0, Monocytes (%) (Auto) 15.4, Eosinophils (%) (Auto) 1.3, Basophils (%) (Auto) 0.3, Neutrophils # (Auto ) 4.46, Lymphocytes # (Auto) 1.85, Monocytes # (Auto) 1.19, Eosinophils # (Auto ) 0.10, Basophils # (Auto) 0.02 12/10/17 23:30 Test 12/10/17 23:30 12/11/17 01:12 White Blood Count 7.71 K/uL (4.8-10.8) Red Blood Count 3.59 M/uL (4.2-5.4) Hemoglobin 11.8 g/dL (12.0-16.0) Hematocrit 32.5 % (37-47) Mean Corpuscular Volume 90.5 fL (80-100) Mean Corpuscular Hemoglobin 32.9 pg (25-34) Mean Corpuscular Hemoglobin Concent 36.3 g/dl (32-36) Platelet Count 204 K/uL (130-400) Mean Platelet Volume 8.2 fL (7.4-10.4) Neutrophils (%) (Auto) 57.8 % Lymphocytes (%) (Auto) 24.0 % Monocytes (%) (Auto) 15.4 % Eosinophils (%) (Auto) 1.3 % Basophils (%) (Auto) 0.3 % Neutrophils # (Auto) 4.46 K/uL (1.4-6.5) Lymphocytes # (Auto) 1.85 K/uL (1.2-3.4) Monocytes # (Auto) 1.19 K/uL (0.11-0.59) Eosinophils # (Auto) 0.10 K/uL (0-0.5) Basophils # (Auto) 0.02 K/uL (0-0.2) RDW Standard Deviation 50.1 fL (36.4-46.3) RDW Coefficient of Variation 15.1 % (11.5-14.5) Immature Granulocyte % (Auto) 1.2 % Immature Granulocyte # (Auto) 0.09 K/uL (0.00-0.02) Anion Gap 8.0 mmol/L (3-11) Est Creatinine Clear Calc Drug Dose 55.3 ml/min Estimated GFR () 70.7 Estimated GFR (Non- 61.0 BUN/Creatinine Ratio 18.5 (10-20) Osmolality 263 mOsm/kg (280-300) Calcium Level 9.2 mg/dl (8.5-10.1) Total Bilirubin 0.6 mg/dl (0.2-1) Aspartate Amino Transf (AST/SGOT) 9 U/L (15-37) Alanine Aminotransferase (ALT/SGPT) 21 U/L (12-78) Alkaline Phosphatase 58 U/L (45-117) Total Protein 7.2 gm/dl (6.4-8.2) Albumin 4.3 gm/dl (3.4-5.0) Globulin 2.9 gm/dl (2.5-4.0) Albumin/Globulin Ratio 1.5 (0.9-2) Urine Color YELLOW Urine Appearance CLEAR (CLEAR) Urine pH 5.0 (4.5-7.5) Urine Specific [place] 1.020 (1.000-1.030) Urine Protein NEG (NEG) Urine Glucose (UA) NEG (NEG) Urine Ketones TRACE (NEG) Urine Occult Blood NEG (NEG) Urine Nitrite NEG (NEG) Urine Bilirubin NEG (NEG) Urine Urobilinogen NEG (NEG) Urine Leukocyte Esterase SMALL (NEG) Urine WBC (Auto) 5-10 /hpf (0-5) Urine RBC (Auto) 0-4 /hpf (0-4) Urine Hyaline Casts (Auto) 1-5 /lpf (0-5) Urine Epithelial Cells (Auto) 10-20 /lpf (0-5) Urine Bacteria (Auto) NEG (NEG) Urine Osmolality 516 mOms/kg (500-800) Results Past 24 Hours Test 12/10/17 23:30 12/11/17 01:12 Range/Units White Blood Count 7.71 4.8-10.8 K/uL Red Blood Count 3.59 4.2-5.4 M/uL Hemoglobin 11.8 12.0-16.0 g/dL Hematocrit 32.5 37-47 % Mean Corpuscular Volume 90.5 80-100 fL Mean Corpuscular Hemoglobin 32.9 25-34 pg Mean Corpuscular Hemoglobin Concent 36.3 32-36 g/dl Platelet Count 204 130-400 K/uL Mean Platelet Volume 8.2 7.4-10.4 fL Neutrophils (%) (Auto) 57.8 % Lymphocytes (%) (Auto) 24.0 % Monocytes (%) (Auto) 15.4 % Eosinophils (%) (Auto) 1.3 % Basophils (%) (Auto) 0.3 % Neutrophils # (Auto) 4.46 1.4-6.5 K/uL Lymphocytes # (Auto) 1.85 1.2-3.4 K/uL Monocytes # (Auto) 1.19 0.11-0.59 K/uL Eosinophils # (Auto) 0.10 0-0.5 K/uL Basophils # (Auto) 0.02 0-0.2 K/uL RDW Standard Deviation 50.1 36.4-46.3 fL RDW Coefficient of Variation 15.1 11.5-14.5 % Immature Granulocyte % (Auto) 1.2 % Immature Granulocyte # (Auto) 0.09 0.00-0.02 K/uL Sodium Level 124 136-145 mmol/L Potassium Level 4.2 3.5-5.1 mmol/L Chloride Level 91 98-107 mmol/L Carbon Dioxide Level 25 21-32 mmol/L Anion Gap 8.0 3-11 mmol/L Blood Urea Nitrogen 17 7-18 mg/dl Creatinine 0.93 0.60-1.20 mg/dl Est Creatinine Clear Calc Drug Dose 55.3 ml/min Estimated GFR () 70.7 Estimated GFR (Non- 61.0 BUN/Creatinine Ratio 18.5 10-20 Random Glucose 156 70-99 mg/dl Osmolality 263 280-300 mOsm/kg Calcium Level 9.2 8.5-10.1 mg/dl Total Bilirubin 0.6 0.2-1 mg/dl Aspartate Amino Transf (AST/SGOT) 9 15-37 U/L Alanine Aminotransferase (ALT/SGPT) 21 12-78 U/L Alkaline Phosphatase 58 45-117 U/L Total Protein 7.2 6.4-8.2 gm/dl Albumin 4.3 3.4-5.0 gm/dl Globulin 2.9 2.5-4.0 gm/dl Albumin/Globulin Ratio 1.5 0.9-2 Urine Color YELLOW Urine Appearance CLEAR CLEAR Urine pH 5.0 4.5-7.5 Urine Specific [place] 1.020 1.000-1.030 Urine Protein NEG NEG Urine Glucose (UA) NEG NEG Urine Ketones TRACE NEG Urine Occult Blood NEG NEG Urine Nitrite NEG NEG Urine Bilirubin NEG NEG Urine Urobilinogen NEG NEG Urine Leukocyte Esterase SMALL NEG Urine WBC (Auto) 5-10 0-5 /hpf Urine RBC (Auto) 0-4 0-4 /hpf Urine Hyaline Casts (Auto) 1-5 0-5 /lpf Urine Epithelial Cells (Auto) 10-20 0-5 /lpf Urine Bacteria (Auto) NEG NEG Urine Osmolality 516 500-800 mOms/kg Diagnostic Radiology CT HEAD WITHOUT CONTRAST (CT) CLINICAL HISTORY: Head trauma. Dizziness. Headache. COMPARISON STUDY: No previous studies for comparison. TECHNIQUE: Axial CT of the brain is performed from the vertex to the skull base. IV contrast was not administered for this examination. A dose lowering technique was utilized adhering to the principles of ALARA. CT DOSE: 537.48 mGy.cm FINDINGS: No intra or extra-axial mass lesions are visualized. There is no CT evidence of acute cortical infarction. There is no evidence of midline shift. There is no acute hemorrhage. No calvarial fractures are visualized. There are patchy white matter hypodensities likely on a small vessel basis. There is no evidence of pathologic ventricular dilatation. There is no evidence of acute sinusitis IMPRESSION: No acute intracranial findings CXR normal (Wet read) Normal EKG Impression Assessment and Plan 72-year-old female with dizziness lightheadedness confusion and spaciness 2 days admitted for significant hyponatremia. 1. Hyponatremia-relatively asymptomatic, likely secondary to multifactorial etiology including chronic nausea, diuretic use, and increased water intake with lower food intake in the last 2 weeks. IV fluids started cautiously with frequent checks of sodium. Consult nephrology. Plan to not increase sodium more than 8 points in 24 hours. Of note orthostatics are positive indicating patient is volume down/hypovolemic. Neurologic exam is unremarkable. With unsteady gait reported, PT OT asked to assess 2. Diabetes-patient prefers to do fingersticks and upper arm with her meter. She will notify nurses of results so they can record them. She refuses inpatient insulin and will stick to Januvia daily. If sugars increase may add Prandin to regimen. Continue to hold metformin while inpatient. 3. Chronic nausea-continue Zofran and supportive care 4. Status post mechanical fall with sternal fracture and chest pain-patient reports improvement every day of chest pain, continue Tylenol and tramadol for pain control. CT scan in of head in the ER was negative. 5. Hyperlipidemia-continue Lipitor DVT prophylaxis-Lovenox Full code as discussed with her on admission Disposition-[facility] Status VTE Prophylaxis Will order VTE Prophylaxis: Yes
--- NOTE | 2017-12-11 06:18 | DIAGNOSTIC IMAGING REPORT ---
CHEST ONE VIEW PORTABLE HISTORY: 72 years-old Female recent sternal fx, hyponatremia acute sternal fracture COMPARISON: Chest radiograph 6 04/03/2010 TECHNIQUE: Portable AP view of the chest FINDINGS: Cardiomediastinal and hilar silhouettes are within normal limits. There is no pneumothorax, pleural effusion, focal airspace consolidation or overt pulmonary edema. The bones of the chest appear grossly intact. IMPRESSION: No acute process. The above report was generated using voice recognition software. It may contain grammatical, syntax or spelling errors. Electronically signed by: Esvin Mccabe M.D. 12/11/2017 6:16 AM Dictated Date/Time: 12/11/2017 6:15 AM
[2017-12-11 07:21] LABS: CALCIUM 8.9 mg/dl (8.5-10.1); CREATININE 0.95 mg/dl (0.60-1.20); POTASSIUM 4.2 mmol/L (3.5-5.1)
[2017-12-11 07:53] LABS: HEMOGLOBIN A1C 7.1 % (4.5-5.6)
[2017-12-11] MEDS: LISINOPRIL 5 MG TAB PO SCH (08:22)
[2017-12-11] MEDS: LORATADINE 10 MG TAB PO SCH (08:22)
[2017-12-11] MEDS: DOCUSATE SODIUM 100 MG CAP PO SCH ×2 (08:22→22:00)
[2017-12-11] MEDS: ATORVASTATIN 20 MG TAB PO SCH (08:22)
[2017-12-11] MEDS: PANTOprazole SOD 40 MG TAB PO SCH ×2 (08:22→22:01)
[2017-12-11] MEDS: CEROVITE ADV FORMULA TAB PO SCH (08:22)
[2017-12-11] MEDS: SITAGLIPTIN 100 MG TAB PO SCH (08:22)
[2017-12-11] MEDS: TRAMADOL HCL 50 MG TAB PO SCH ×2 (08:25→22:13)
[2017-12-11] MEDS ORDERED: ENOXAPARIN 40 MG/0.4 ML SYR SC SCH (09:00)
[2017-12-11] MEDS: SODIUM CHLORIDE 0.9% 1000ML 1,000 ML IV SCH ×2 (10:44→21:58)
[2017-12-11] MEDS: ASPIRIN 81 MG ECTAB PO SCH (12:05)
[2017-12-11] MEDS: REPAGLINIDE 1 MG TAB PO SCH (12:05)
[2017-12-11] MEDS: FERROUS SULFATE 325 MG TAB PO SCH (12:06)
[2017-12-11] MEDS: CYANOCOBALAMIN 500 MCG TAB (VIT B-12) PO SCH (12:06)
[2017-12-11] MEDS: ASCORBIC ACID 500 MG TAB PO SCH (12:06)
[2017-12-11 12:46] LABS: CALCIUM 8.9 mg/dl (8.5-10.1); CREATININE 0.87 mg/dl (0.60-1.20); POTASSIUM 4.1 mmol/L (3.5-5.1)
--- NOTE | 2017-12-11 12:57 | Progress Note ---
Internal Med Progress Note Date of Service: Dec 11, 2017. Provider Documentation: SUBJECTIVE: The patient was seen and examined this morning She was admitted to the with a 2 day history of lightheadedness with a history of fall about 2 weeks ago. She was noted to have a sodium of 124 with a negative CAT scan of the head. She has been feeling much better since this morning OBJECTIVE: Vital Signs-as noted below Exam: General-she does not have any acute symptoms at rest Eyes-normal ENT-normal Neck-supple Lungs-clear to auscultate bilaterally Heart-regular S1-S2 no murmur appreciated Abdomen-benign, no masses, bowel sounds present. Extremities-no edema. Neuro-alert awake and oriented 3. No focal sensory and/or motor deficit appreciated Lab data as noted below. ASSESSMENT & PLAN: 72-year-old female with dizziness lightheadedness confusion and spaciness 2 days admitted for significant hyponatremia. Hyponatremia-relatively asymptomatic, Hypovolemic hyponatremia Likely secondary to multifactorial etiology including chronic nausea, diuretic use, and increased water intake with lower food intake in the last 2 weeks. IV fluids started cautiously with frequent checks of sodium. Consult nephrology-appreciate input. Clinically better Monitor PRP Diabetes-patient prefers to do fingersticks and upper arm with her meter. She refuses inpatient insulin and will stick to Januvia daily. If sugars increase may add Prandin to regimen. Continue to hold metformin while inpatient. Chronic nausea-continue Zofran and supportive care Status post mechanical fall with sternal fracture and chest pain-patient reports improvement every day of chest pain, continue Tylenol and tramadol for pain control. CT scan in of head in the ER was negative. Hyperlipidemia-continue Lipitor DVT prophylaxis-Lovenox satret Pt refused Increase Ambulation and apply SCDs Full code as discussed with her on admission Disposition-telemetry Vital Signs: Date Time Temp Pulse Resp B/P (MAP) Pulse Ox O2 Delivery O2 Flow Rate FiO2 12/11/17 12:00 Room Air 12/11/17 11:24 36.7 86 16 155/79 (104) 96 12/11/17 08:00 Room Air 12/11/17 07:12 36.9 108 18 170/77 (108) 99 Room Air 12/11/17 04:01 99 Room Air 12/11/17 02:30 36.7 95 18 188/91 99 Room Air 12/11/17 01:45 98 18 193/80 97 190/91 158/81 12/11/17 01:45 105 20 158/81 99 Room Air 12/10/17 22:49 90 18 162/75 97 Room Air 12/10/17 21:20 36.7 102 19 171/78 97 Room Air Lab Results: Results Past 24 Hours Test 12/10/17 23:30 12/11/17 01:12 12/11/17 06:30 12/11/17 07:27 Range/Units White Blood Count 7.71 4.8-10.8 K/uL Red Blood Count 3.59 4.2-5.4 M/uL Hemoglobin 11.8 12.0-16.0 g/dL Hematocrit 32.5 37-47 % Mean Corpuscular Volume 90.5 80-100 fL Mean Corpuscular Hemoglobin 32.9 25-34 pg Mean Corpuscular Hemoglobin Concent 36.3 32-36 g/dl Platelet Count 204 130-400 K/uL Mean Platelet Volume 8.2 7.4-10.4 fL Neutrophils (%) (Auto) 57.8 % Lymphocytes (%) (Auto) 24.0 % Monocytes (%) (Auto) 15.4 % Eosinophils (%) (Auto) 1.3 % Basophils (%) (Auto) 0.3 % Neutrophils # (Auto) 4.46 1.4-6.5 K/uL Lymphocytes # (Auto) 1.85 1.2-3.4 K/uL Monocytes # (Auto) 1.19 0.11-0.59 K/uL Eosinophils # (Auto) 0.10 0-0.5 K/uL Basophils # (Auto) 0.02 0-0.2 K/uL RDW Standard Deviation 50.1 36.4-46.3 fL RDW Coefficient of Variation 15.1 11.5-14.5 % Immature Granulocyte % (Auto) 1.2 % Immature Granulocyte # (Auto) 0.09 0.00-0.02 K/uL Sodium Level 124 125 136-145 mmol/L Potassium Level 4.2 4.2 3.5-5.1 mmol/L Chloride Level 91 92 98-107 mmol/L Carbon Dioxide Level 25 24 21-32 mmol/L Anion Gap 8.0 9.0 3-11 mmol/L Blood Urea Nitrogen 17 14 7-18 mg/dl Creatinine 0.93 0.95 0.60-1.20 mg/dl Est Creatinine Clear Calc Drug Dose 55.3 54.2 ml/min Estimated GFR () 70.7 68.9 Estimated GFR (Non- 61.0 59.4 BUN/Creatinine Ratio 18.5 15.0 10-20 Random Glucose 156 179 70-99 mg/dl Osmolality 263 280-300 mOsm/kg Calcium Level 9.2 8.9 8.5-10.1 mg/dl Total Bilirubin 0.6 0.2-1 mg/dl Aspartate Amino Transf (AST/SGOT) 9 15-37 U/L Alanine Aminotransferase (ALT/SGPT) 21 12-78 U/L Alkaline Phosphatase 58 45-117 U/L Total Protein 7.2 6.4-8.2 gm/dl Albumin 4.3 3.4-5.0 gm/dl Globulin 2.9 2.5-4.0 gm/dl Albumin/Globulin Ratio 1.5 0.9-2 Urine Color YELLOW Urine Appearance CLEAR CLEAR Urine pH 5.0 4.5-7.5 Urine Specific [place] 1.020 1.000-1.030 Urine Protein NEG NEG Urine Glucose (UA) NEG NEG Urine Ketones TRACE NEG Urine Occult Blood NEG NEG Urine Nitrite NEG NEG Urine Bilirubin NEG NEG Urine Urobilinogen NEG NEG Urine Leukocyte Esterase SMALL NEG Urine WBC (Auto) 5-10 0-5 /hpf Urine RBC (Auto) 0-4 0-4 /hpf Urine Hyaline Casts (Auto) 1-5 0-5 /lpf Urine Epithelial Cells (Auto) 10-20 0-5 /lpf Urine Bacteria (Auto) NEG NEG Urine Osmolality 516 500-800 mOms/kg Prothrombin Time 10.1 9.0-12.0 SECONDS Prothromb Time International Ratio 1.0 0.9-1.1 Activated Partial Thromboplast Time 24.0 21.0-31.0 SECONDS Partial Thromboplastin Ratio 0.9 Estimated Average Glucose 157 mg/dl Hemoglobin A1c 7.1 4.5-5.6 % Magnesium Level 1.8 1.8-2.4 mg/dl Bedside Glucose 168 70-90 mg/dl Test 12/11/17 11:33 12/11/17 11:54 Range/Units Bedside Glucose 185 70-90 mg/dl
--- NOTE | 2017-12-11 17:27 | Nephrology Consultation ---
Nephrology Consultation Date of Consultation: Dec 11, 2017. Attending Physician: Dr Callaway Requesting Physician: Dr Paul Reason for Consultation: hyponatremia History of Present Illness 72 year old female w/ DM w/ gastroparesis, fall a few weeks ago on high dose pain medicine for sternal fracture resulting in 2 wks of worse po intake, more N than usual, more water intake than usual, poor sleep presented last evening to the ER w/ dizziness and lightheadedness and found to have sNa 124, up to 125 this am after 1500 mL NS. She had presented to PCP and rheum earlier in the day w/ many concerns; labs showed sNa 126. She has prn prednisone and prn lasix on her outpt med list as well as naprosyn. She denies etoh use; states that fall 2 wks back occurred when she tripped over a sewing box in her hallway. Of note after that fall had new pain meds added > tramadol and opiates ; the latter she stopped b/c worsened N. At the time when I evaluated her this am at 0900, she c/o no N, no uncontrolled pain, no dyspnea or cough. Does remain worried about her ambulation though and PT to assess. Past Medical/Surgical History -seronegative inflammatory polyarthritis, erythema nodosum on plaquenil, nsaids , prn steroid -GERD -DM2 on metformin w/ gastroparesis -lumbar disc degeneration -HTN -osteoporosis -HL -s/p mechanical fall 2 wks ago w/ head contusion and sternal fracture Family History CVA MOTHER FH: lung cancer FATHER FH: stomach cancer MOTHER Type 2 diabetes mellitus BROTHER Social History Smoking Status: Former Smoker (In college only) Alcohol Use: none Drug Use: none Marital Status: Housing Status: lives with significant other Occupation Status: retired Allergies Coded Allergies: Latex1 -Allergic Contact Dermititis (Verified Allergy, Unknown, SWELLING WITH MUCOUS MEMBRANES, 12/11/17) Sulfa Drugs (Verified Adverse Reaction, Unknown, "COMING OUT THROUGH MY PORES", 12/11/17) Medications Current Inpatient Medications Medications (Trade) Dose Ordered Sig/Niall Route Start Time Stop Time Status Last Admin Dose Admin Enoxaparin Sodium (Lovenox Inj) 40 mg DAILY SC 12/11/17 09:00 01/10/18 08:59 Acetaminophen (Tylenol Tab) 650 mg Q4H PRN PO 12/11/17 04:00 01/10/18 03:59 Ondansetron HCl (Zofran Inj) 4 mg Q6H PRN IV 12/11/17 04:00 01/10/18 03:59 Morphine Sulfate (MoRPHine SULFATE INJ) 2 mg Q4H PRN IV 12/11/17 04:00 12/25/17 03:59 Polyethylene (Miralax Powder Packet) 17 gm DAILY PRN PO 12/11/17 04:00 01/10/18 03:59 Albuterol (Ventolin Hfa Inhaler) 2 puffs Q6H PRN INH 12/11/17 04:00 01/10/18 03:59 Ascorbic Acid (Vitamin C Tab) 500 mg QAM PO 12/11/17 09:00 01/10/18 08:59 Aspirin (Ecotrin Tab) 81 mg QAM PO 12/11/17 09:00 01/10/18 08:59 Atorvastatin Calcium (Lipitor Tab) 20 mg DAILY PO 12/11/17 09:00 01/10/18 08:59 12/11/17 08:22 20 MG Cyanocobalamin (Vitamin B-12 Tab) 500 mcg DAILY PO 12/11/17 09:00 01/10/18 08:59 Docusate Sodium (coLACE CAP) 100 mg BID PO 12/11/17 09:00 01/10/18 08:59 12/11/17 08:22 100 MG Hydroxychloroquine Sulfate (Plaquenil Tab) 400 mg QPM PO 12/11/17 21:00 01/10/18 20:59 Lisinopril (Zestril Tab) 5 mg DAILY PO 12/11/17 09:00 01/10/18 08:59 12/11/17 08:22 5 MG Loratadine (Claritin Tab) 10 mg DAILY PO 12/11/17 09:00 01/10/18 08:59 12/11/17 08:22 10 MG Multivitamins/ Minerals (Multivitamin W/ Minerals Tab) 1 tab DAILY PO 12/11/17 09:00 01/10/18 08:59 12/11/17 08:22 1 TAB Sodium Chloride ([place] Nasal [place]) 2 sprays PRN PRN ANILA 12/11/17 04:00 01/10/18 03:59 Sitagliptin Phosphate (Januvia Tab) 100 mg QAM PO 12/11/17 09:00 01/10/18 08:59 12/11/17 08:22 100 MG Temazepam (Restoril Cap) 15 mg HS PRN PO 12/11/17 04:00 01/10/18 03:59 Tramadol HCl (Ultram Tab) 50 mg BID PO 12/11/17 09:00 01/10/18 08:59 12/11/17 08:25 50 MG Ferrous Sulfate (Feosol Tab) 325 mg QAM PO 12/11/17 09:00 01/10/18 08:59 Pantoprazole Sodium (Protonix Tab) 40 mg BID PO 12/11/17 09:00 01/10/18 08:59 12/11/17 08:22 40 MG Glucose (Glucose 40% Gel) 15-30 GRAMS 15 GRAMS... UD PRN PO 12/11/17 04:15 01/10/18 04:14 Glucose (Glucose Chew Tab) 4-8 Tablets 4 Tabl... UD PRN PO 12/11/17 04:15 01/10/18 04:14 Dextrose (Dextrose 50% 50ML Syringe) 25-50ML OF 50% DW IV FOR... UD PRN IV 12/11/17 04:15 01/10/18 04:14 Glucagon (Glucagon Inj) 1 mg UD PRN SQ 12/11/17 04:15 01/10/18 04:14 Repaglinide (Prandin Tab) 2 mg DAILY@1200 PO 12/11/17 12:00 01/10/18 11:59 Home Meds and Scripts Medications Dose Route/Sig Max Daily Dose Days Date Category Dose Instructions Saline Nasal [place] (Saline) 0.65 % Spr 1-2 Sprays ANILA UD PRN 12/11/17 Reported Claritin (Loratadine) 10 Mg Tab 10 Mg PO DAILY 11/18/17 Reported Vitamin C (Ascorbic Acid) 500 Mg Tab 500 Mg PO QAM 11/18/17 Reported Ocuvite Preservision (Multivitamins/Minerals) 1 Tab Tab 1 Tab PO DAILY 11/18/17 Reported Prilosec (Omeprazole) 20 Mg Capcr 20 Mg PO AMHS 11/18/17 Reported Ferrous Sulfate 325 Mg Tab 1 Tab PO QAM 09/03/17 Reported Rogaine Extra Strength Fo (Minoxidil (Topical)) 5 % Radha 1 Dose PRN 09/03/17 Reported Prandin (Repaglinide) 2 Mg Tab 2 Mg PO NOON 09/03/17 Reported Aspirin Chewable (Aspirin) 81 Mg Chew 81 Mg PO QAM 09/03/17 Reported Vitamin B12 500MCG (Cyanocobalamin) 500 Mcg Tab 500 Mcg PO DAILY AT NOON 09/03/17 Reported Zofran (Ondansetron HCl) 4 Mg Tab 4 Mg PO Q8H PRN 09/03/17 Reported Restoril (Temazepam) 15 Mg Cap 15 Mg PO HS PRN 09/03/17 Reported Colace (Docusate Sodium) 100 Mg Cap 1 Cap PO BID 09/03/17 Reported Glucophage (Metformin Hcl) 1,000 Mg Tab 1,000 Mg PO BID 09/03/17 Reported Prednisone 5 Mg Tab 5 Mg PO DAILY PRN 09/03/17 Reported Januvia (Sitagliptin Phosphate) 100 Mg Tab 100 Mg PO QAM 09/03/17 Reported Plaquenil (Hydroxychloroquine Sulfate) 200 Mg Tab 2 Tab PO QPM 09/03/17 Reported Ultram (Tramadol HCl) 50 Mg Tab 50 Mg PO BID 09/03/17 Reported morning and noon Meclizine Hcl 25 Mg Tab 1 Tab PO TID PRN 09/03/17 Reported Naprosyn (Naproxen) 500 Mg Tab 500 Mg PO BID 09/03/17 Reported morning and noon Zestril (Lisinopril) 5 Mg Tab 5 Mg PO DAILY AT NOON 09/03/17 Reported Lipitor (Atorvastatin Calcium) 20 Mg Tab 20 Mg PO DAILY AT NOON 09/03/17 Reported Ventolin Hfa (Albuterol) 200 Puffs/[id number] Mcg Aers 2-4 Puffs INH Q6H PRN 09/03/17 Reported Review of Systems Constitutional: + weakness, + fatigue, No fever, No chills Eyes: No worsening of vision ENT: No hearing loss Respiratory: No cough, No wheezing, No shortness of breath, No dyspnea on exertion Cardiac: + edema (mild BL), No chest pain, No palpitations Abdomen: + see HPI, + nausea (none currently but this is a chronic issue for her), No vomiting, No diarrhea Musculoskeletal: + see HPI, + joint pain Female : + problem reported (no change in chronic voiding habits) Neuro: + weakness, + balance problems Psych: No depression symptoms, No anxiety Heme: No abnormal bleeding/bruising Endo: + fatigue Skin: + rash (c/o stable chronic distal BLE redness) Physical Exam Date Time Temp Pulse Resp B/P (MAP) Pulse Ox O2 Delivery O2 Flow Rate FiO2 12/11/17 07:12 36.9 108 18 170/77 (108) 99 Room Air 12/11/17 04:01 99 Room Air 12/11/17 02:30 36.7 95 18 188/91 99 Room Air 12/11/17 01:45 98 18 193/80 97 190/91 158/81 12/11/17 01:45 105 20 158/81 99 Room Air 12/10/17 22:49 90 18 162/75 97 Room Air 12/10/17 21:20 36.7 102 19 171/78 97 Room Air General Appearance: WD/WN, no apparent distress, + pertinent finding (on ra nad ) Eyes: EOMI ENT: hearing grossly normal Neck: supple Respiratory/Chest: normal breath sounds, no respiratory distress, + decreased breath sounds (kyphotic t spine) Cardiovascular: regular rate, rhythm, + pertinent finding (at very most trace bl edema) Abdomen: normal bowel sounds, non tender, soft Extremities: normal range of motion, + swelling (trace BL distal LE edema) Neurologic/Psych: alert, oriented x 3, + pertinent finding (moves all extremities, fluent speech, affect unusual -- suspicious/inquisitive at times but in passing ) Skin: no jaundice, warm/dry, no rash, + pertinent finding (distal BLE reddened/ chronic venous stasis changes) Diagnostics Last 24 Hours Test 12/10/17 23:30 12/11/17 01:12 12/11/17 06:30 12/11/17 07:27 White Blood Count 7.71 K/uL Red Blood Count 3.59 M/uL Hemoglobin 11.8 g/dL Hematocrit 32.5 % Mean Corpuscular Volume 90.5 fL Mean Corpuscular Hemoglobin 32.9 pg Mean Corpuscular Hemoglobin Concent 36.3 g/dl Platelet Count 204 K/uL Mean Platelet Volume 8.2 fL Neutrophils (%) (Auto) 57.8 % Lymphocytes (%) (Auto) 24.0 % Monocytes (%) (Auto) 15.4 % Eosinophils (%) (Auto) 1.3 % Basophils (%) (Auto) 0.3 % Neutrophils # (Auto) 4.46 K/uL Lymphocytes # (Auto) 1.85 K/uL Monocytes # (Auto) 1.19 K/uL Eosinophils # (Auto) 0.10 K/uL Basophils # (Auto) 0.02 K/uL RDW Standard Deviation 50.1 fL RDW Coefficient of Variation 15.1 % Immature Granulocyte % (Auto) 1.2 % Immature Granulocyte # (Auto) 0.09 K/uL Sodium Level 124 mmol/L 125 mmol/L Potassium Level 4.2 mmol/L 4.2 mmol/L Chloride Level 91 mmol/L 92 mmol/L Carbon Dioxide Level 25 mmol/L 24 mmol/L Anion Gap 8.0 mmol/L 9.0 mmol/L Blood Urea Nitrogen 17 mg/dl 14 mg/dl Creatinine 0.93 mg/dl 0.95 mg/dl Est Creatinine Clear Calc Drug Dose 55.3 ml/min 54.2 ml/min Estimated GFR () 70.7 68.9 Estimated GFR (Non- 61.0 59.4 BUN/Creatinine Ratio 18.5 15.0 Random Glucose 156 mg/dl 179 mg/dl Osmolality 263 mOsm/kg Calcium Level 9.2 mg/dl 8.9 mg/dl Total Bilirubin 0.6 mg/dl Aspartate Amino Transf (AST/SGOT) 9 U/L Alanine Aminotransferase (ALT/SGPT) 21 U/L Alkaline Phosphatase 58 U/L Total Protein 7.2 gm/dl Albumin 4.3 gm/dl Globulin 2.9 gm/dl Albumin/Globulin Ratio 1.5 Urine Color YELLOW Urine Appearance CLEAR Urine pH 5.0 Urine Specific [place] 1.020 Urine Protein NEG Urine Glucose (UA) NEG Urine Ketones TRACE Urine Occult Blood NEG Urine Nitrite NEG Urine Bilirubin NEG Urine Urobilinogen NEG Urine Leukocyte Esterase SMALL Urine WBC (Auto) 5-10 /hpf Urine RBC (Auto) 0-4 /hpf Urine Hyaline Casts (Auto) 1-5 /lpf Urine Epithelial Cells (Auto) 10-20 /lpf Urine Bacteria (Auto) NEG Urine Osmolality 516 mOms/kg Prothrombin Time 10.1 SECONDS Prothromb Time International Ratio 1.0 Activated Partial Thromboplast Time 24.0 SECONDS Partial Thromboplastin Ratio 0.9 Estimated Average Glucose 157 mg/dl Hemoglobin A1c 7.1 % Magnesium Level 1.8 mg/dl Bedside Glucose 168 mg/dl Diagnostic Radiology: Head CT > no acute i-c process cxr one view > no obvious frx; no infiltrate Assessment & Plan 72 y/o F w/ chronic N attributed to gastroparesis, DM, lumbar disc degeneration , inflammatory arthritis on prn steorids and erythema nodosum, HTN admitted w/ sNa 124 after presenting w/ worsened generalized weakness, presyncopal sx, transient blurred vision. Hypotonic hyponatremia multifactorial > risk ff include nsaid use, pain, poor po, increased water intake; not floridly overloaded on exam -did discuss w/ pt this may prove challenging to manage but that we will follow her closely -ordered rd urine Na and await result -control pain and N (per primary service) -q6h BMP ordered urgent -goal sNa for tomorrow is 131 -avoid/minimize nsaids -resume NS at 100 mL hourly HTN -had not yet had am meds when I saw her -minimize nsaids if possible but control pain -follow trends -given recent blurred vision, elevated BP, gait issues >> recommend serial neuro exams, low threshold for neuro c/s and/or MRI s/p recent sternal fracture >consider PA and lateral XR >> to check fracture and to ensure no occult PNA w/ decreased inspiratory efforts -agree w/ PT eval Appreciate consult; will follow with you.
[2017-12-11] MEDS: ACETAMINOPHEN 325 MG TAB PO PRN (17:47)
[2017-12-11 18:32] LABS: CALCIUM 9.1 mg/dl (8.5-10.1); CREATININE 0.98 mg/dl (0.60-1.20); POTASSIUM 4.6 mmol/L (3.5-5.1)
[2017-12-11] MEDS: HYDROXYCHLOROQUINE SULFATE 200 MG TAB PO SCH (22:00)
[2017-12-12 07:13] VITALS: BP 158/81; PULSE 79; TEMP 36.8; O2SAT 98
[2017-12-12 07:36] LABS: CREATININE 0.86 mg/dl (0.60-1.20); POTASSIUM 4.2 mmol/L (3.5-5.1)
[2017-12-12] MEDS: PANTOprazole SOD 40 MG TAB PO SCH ×2 (08:09→21:12)
[2017-12-12] MEDS: ASPIRIN 81 MG ECTAB PO SCH (08:09)
[2017-12-12] MEDS: ATORVASTATIN 20 MG TAB PO SCH (08:09)
[2017-12-12] MEDS: CYANOCOBALAMIN 500 MCG TAB (VIT B-12) PO SCH (08:09)
[2017-12-12] MEDS: FERROUS SULFATE 325 MG TAB PO SCH (08:09)
[2017-12-12] MEDS: ASCORBIC ACID 500 MG TAB PO SCH (08:09)
[2017-12-12] MEDS: SODIUM CHLORIDE 0.9% 1000ML 1,000 ML IV SCH (08:09)
[2017-12-12] MEDS: SITAGLIPTIN 100 MG TAB PO SCH (08:09)
[2017-12-12] MEDS: CEROVITE ADV FORMULA TAB PO SCH (08:09)
[2017-12-12] MEDS: LORATADINE 10 MG TAB PO SCH (08:09)
[2017-12-12] MEDS: LISINOPRIL 5 MG TAB PO SCH (08:09)
[2017-12-12] MEDS: DOCUSATE SODIUM 100 MG CAP PO SCH ×2 (08:09→21:12)
[2017-12-12] MEDS: TRAMADOL HCL 50 MG TAB PO SCH ×2 (08:13→21:00)
--- NOTE | 2017-12-12 10:32 | Nephrology Progress Note ---
Nephrology Progress Note Date of Service: Dec 12, 2017. Subjective no sob, some N and sternal pain this am; ambulating but had to sit and rest b/c was dizzy Objective Date Time Temp Pulse Resp B/P (MAP) Pulse Ox O2 Delivery O2 Flow Rate FiO2 12/12/17 08:00 Room Air 12/12/17 07:13 36.8 79 18 158/81 (106) 98 Room Air 12/12/17 04:05 Room Air 12/12/17 00:05 Room Air 12/11/17 23:18 36.8 80 16 153/78 (103) 97 Room Air 12/11/17 20:05 Room Air 12/11/17 19:17 36.9 89 18 176/78 (110) 97 Room Air 12/11/17 16:00 Room Air 12/11/17 15:27 36.9 95 20 159/72 (101) 95 12/11/17 12:00 Room Air 12/11/17 11:24 36.7 86 16 155/79 (104) 96 Physical Exam: General Appearance: WD/WN, no apparent distress, + pertinent finding (on ra nad ) up in chair Eyes: EOMI ENT: hearing grossly normal Neck: supple Respiratory/Chest: normal breath sounds, no respiratory distress, + decreased breath sounds (kyphotic t spine) Cardiovascular: regular rate, rhythm, + pertinent finding (no edema) Abdomen: normal bowel sounds, non tender, soft Extremities: normal range of motion, + swelling (no edema) Neurologic/Psych: alert, oriented x 3, + pertinent finding (moves all extremities, fluent speech, tangential thoughts at times ) Skin: no jaundice, warm/dry, no rash, + pertinent finding (distal BLE reddened/ chronic venous stasis changes) Current Inpatient Medications Medications (Trade) Dose Ordered Sig/Niall Route Start Time Stop Time Status Last Admin Dose Admin Acetaminophen (Tylenol Tab) 650 mg Q4H PRN PO 12/11/17 04:00 01/10/18 03:59 12/11/17 17:47 650 MG Ondansetron HCl (Zofran Inj) 4 mg Q6H PRN IV 12/11/17 04:00 01/10/18 03:59 Morphine Sulfate (MoRPHine SULFATE INJ) 2 mg Q4H PRN IV 12/11/17 04:00 12/25/17 03:59 Polyethylene (Miralax Powder Packet) 17 gm DAILY PRN PO 12/11/17 04:00 01/10/18 03:59 Albuterol (Ventolin Hfa Inhaler) 2 puffs Q6H PRN INH 12/11/17 04:00 01/10/18 03:59 Ascorbic Acid (Vitamin C Tab) 500 mg QAM PO 12/11/17 09:00 01/10/18 08:59 12/12/17 08:09 500 MG Aspirin (Ecotrin Tab) 81 mg QAM PO 12/11/17 09:00 01/10/18 08:59 12/12/17 08:09 81 MG Atorvastatin Calcium (Lipitor Tab) 20 mg DAILY PO 12/11/17 09:00 01/10/18 08:59 12/12/17 08:09 20 MG Cyanocobalamin (Vitamin B-12 Tab) 500 mcg DAILY PO 12/11/17 09:00 01/10/18 08:59 12/12/17 08:09 500 MCG Docusate Sodium (coLACE CAP) 100 mg BID PO 12/11/17 09:00 01/10/18 08:59 12/12/17 08:09 100 MG Hydroxychloroquine Sulfate (Plaquenil Tab) 400 mg QPM PO 12/11/17 21:00 01/10/18 20:59 12/11/17 22:00 400 MG Lisinopril (Zestril Tab) 5 mg DAILY PO 12/11/17 09:00 01/10/18 08:59 12/12/17 08:09 5 MG Loratadine (Claritin Tab) 10 mg DAILY PO 12/11/17 09:00 01/10/18 08:59 12/12/17 08:09 10 MG Multivitamins/ Minerals (Multivitamin W/ Minerals Tab) 1 tab DAILY PO 12/11/17 09:00 01/10/18 08:59 12/12/17 08:09 1 TAB Sodium Chloride ([place] Nasal [place]) 2 sprays PRN PRN ANILA 12/11/17 04:00 01/10/18 03:59 Sitagliptin Phosphate (Januvia Tab) 100 mg QAM PO 12/11/17 09:00 01/10/18 08:59 12/12/17 08:09 100 MG Temazepam (Restoril Cap) 15 mg HS PRN PO 12/11/17 04:00 01/10/18 03:59 Tramadol HCl (Ultram Tab) 50 mg BID PO 12/11/17 09:00 01/10/18 08:59 12/12/17 08:13 50 MG Ferrous Sulfate (Feosol Tab) 325 mg QAM PO 12/11/17 09:00 01/10/18 08:59 12/12/17 08:09 325 MG Pantoprazole Sodium (Protonix Tab) 40 mg BID PO 12/11/17 09:00 01/10/18 08:59 12/12/17 08:09 40 MG Glucose (Glucose 40% Gel) 15-30 GRAMS 15 GRAMS... UD PRN PO 12/11/17 04:15 01/10/18 04:14 Glucose (Glucose Chew Tab) 4-8 Tablets 4 Tabl... UD PRN PO 12/11/17 04:15 01/10/18 04:14 Dextrose (Dextrose 50% 50ML Syringe) 25-50ML OF 50% DW IV FOR... UD PRN IV 12/11/17 04:15 01/10/18 04:14 Glucagon (Glucagon Inj) 1 mg UD PRN SQ 12/11/17 04:15 01/10/18 04:14 Repaglinide (Prandin Tab) 2 mg DAILY@1200 PO 12/11/17 12:00 01/10/18 11:59 12/11/17 12:05 2 MG Last 24 Hours Test 12/11/17 11:33 12/11/17 11:54 12/11/17 16:14 12/11/17 17:22 Bedside Glucose 185 mg/dl 117 mg/dl Sodium Level 125 mmol/L Potassium Level 4.1 mmol/L Chloride Level 94 mmol/L Carbon Dioxide Level 25 mmol/L Anion Gap 6.0 mmol/L Blood Urea Nitrogen 13 mg/dl Creatinine 0.87 mg/dl Est Creatinine Clear Calc Drug Dose 59.1 ml/min Estimated GFR () 76.6 Estimated GFR (Non- 66.1 BUN/Creatinine Ratio 15.1 Random Glucose 158 mg/dl Calcium Level 8.9 mg/dl Urine Random Sodium 50 mEq/L Test 12/11/17 18:03 12/11/17 20:40 12/12/17 06:08 12/12/17 07:23 Sodium Level 127 mmol/L 132 mmol/L Potassium Level 4.6 mmol/L 4.2 mmol/L Chloride Level 95 mmol/L 100 mmol/L Carbon Dioxide Level 25 mmol/L 23 mmol/L Anion Gap 7.0 mmol/L 9.0 mmol/L Blood Urea Nitrogen 11 mg/dl 10 mg/dl Creatinine 0.98 mg/dl 0.86 mg/dl Est Creatinine Clear Calc Drug Dose 52.5 ml/min 59.8 ml/min Estimated GFR () 66.3 77.7 Estimated GFR (Non- 57.2 67.0 BUN/Creatinine Ratio 11.6 12.1 Random Glucose 149 mg/dl 143 mg/dl Calcium Level 9.1 mg/dl 9.0 mg/dl Bedside Glucose 127 mg/dl 148 mg/dl Assessment & Plan 72 y/o F w/ chronic N attributed to gastroparesis, DM, lumbar disc degeneration , inflammatory arthritis on prn steorids and erythema nodosum, HTN admitted w/ sNa 124 after presenting w/ worsened generalized weakness, presyncopal sx, transient blurred vision. Hypovolemic hypotonic hyponatremia multifactorial > risk ff include nsaid use, pain, poor po, increased water intake; not floridly overloaded on exam >> based on her response however, likeliest hypovolemic -did discuss w/ pt this may prove challenging to manage but that we will follow her closely -control pain and N (per primary service) -recheck bmp this evening and/or in AM > if it remains in current range w/o NS she is reasonable for d/c from renal standpoint; recommend rechck bmp at pcp f/u ; to avoid this in future recommend she get eval w/in 5-7 days as outpt if she is having trouble maintaining po so that labs can be checked -avoid/minimize nsaids -turn off NS midday HTN -may simply reflect her pain -in this patient at this time stabilizing her gait/ preventing falls takes clinical priority of perfect bp control; SBP in 150s w/ better balance is preferable to SBP 120s w/ light headedness -minimize nsaids if possible but control pain -follow trends > could increase lisinopril or/and start amlodipine low dose though the latter takes 3-5 days time to reach full effect -given recent blurred vision, elevated BP, gait issues >> recommend serial neuro exams, low threshold for neuro c/s and/or MRI s/p recent sternal fracture d/t a fall w/ ongoing light headedness >consider PA and lateral XR >> to check fracture and to ensure no occult PNA w/ decreased inspiratory efforts -agree w/ PT eval/ f/u recs Appreciate consult; will follow with you. Care coordinated w/ dr arellano
[2017-12-12] MEDS: REPAGLINIDE 1 MG TAB PO SCH (12:20)
--- NOTE | 2017-12-12 12:26 | Progress Note ---
Internal Med Progress Note Date of Service: Dec 12, 2017. Provider Documentation: SUBJECTIVE: The patient was seen and examined this morning She was admitted to the with a 2 day history of lightheadedness with a history of fall about 2 weeks ago. She was noted to have a sodium of 124 with a negative CAT scan of the head. She has been feeling much better since this morning Denies any mors symptoms Ambulating well Wants to go home today OBJECTIVE: Vital Signs-as noted below Exam: General-she does not have any acute symptoms at rest Eyes-normal ENT-normal Neck-supple Lungs-clear to auscultate bilaterally Heart-regular S1-S2 no murmur appreciated Abdomen-benign, no masses, bowel sounds present. Extremities-no edema. Neuro-alert awake and oriented 3. No focal sensory and/or motor deficit appreciated Lab data as noted below. ASSESSMENT & PLAN: 72-year-old female with dizziness lightheadedness confusion and spaciness 2 days admitted for significant hyponatremia. Hyponatremia-relatively asymptomatic, Hypovolemic hyponatremia Likely secondary to multifactorial etiology including chronic nausea, diuretic use, and increased water intake with lower food intake in the last 2 weeks. IV fluids started cautiously with frequent checks of sodium. Consult nephrology-appreciate input. Clinically a better Monitor PRP-Sodium 132 this AM Stop IV NS and repeat Sodium at ~5 PM ,if ~132 will send her home Can have a little extra salt in diet Diabetes-patient prefers to do fingersticks and upper arm with her meter. She refuses inpatient insulin and will stick to Januvia daily. If sugars increase may add Prandin to regimen. Continue to hold metformin while inpatient. Resume home Meds on discharge Chronic nausea-continue Zofran and supportive care Status post mechanical fall with sternal fracture and chest pain-patient reports improvement every day of chest pain, continue Tylenol and tramadol for pain control. CT scan in of head in the ER was negative. Hyperlipidemia-continue Lipitor DVT prophylaxis-Lovenox satret Pt refused Increase Ambulation and apply SCDs Full code as discussed with her on admission Disposition-telemetry Likely home this Afternoon Vital Signs: Date Time Temp Pulse Resp B/P (MAP) Pulse Ox O2 Delivery O2 Flow Rate FiO2 12/12/17 08:00 Room Air 12/12/17 07:13 36.8 79 18 158/81 (106) 98 Room Air 12/12/17 04:05 Room Air 12/12/17 00:05 Room Air 12/11/17 23:18 36.8 80 16 153/78 (103) 97 Room Air 12/11/17 20:05 Room Air 12/11/17 19:17 36.9 89 18 176/78 (110) 97 Room Air 12/11/17 16:00 Room Air 12/11/17 15:27 36.9 95 20 159/72 (101) 95 Lab Results: Results Past 24 Hours Test 12/11/17 16:14 12/11/17 17:22 12/11/17 18:03 12/11/17 20:40 Range/Units Bedside Glucose 117 127 70-90 mg/dl Urine Random Sodium 50 mEq/L Sodium Level 127 136-145 mmol/L Potassium Level 4.6 3.5-5.1 mmol/L Chloride Level 95 98-107 mmol/L Carbon Dioxide Level 25 21-32 mmol/L Anion Gap 7.0 3-11 mmol/L Blood Urea Nitrogen 11 7-18 mg/dl Creatinine 0.98 0.60-1.20 mg/dl Est Creatinine Clear Calc Drug Dose 52.5 ml/min Estimated GFR () 66.3 Estimated GFR (Non- 57.2 BUN/Creatinine Ratio 11.6 10-20 Random Glucose 149 70-99 mg/dl Calcium Level 9.1 8.5-10.1 mg/dl Test 12/12/17 06:08 12/12/17 07:23 Range/Units Sodium Level 132 136-145 mmol/L Potassium Level 4.2 3.5-5.1 mmol/L Chloride Level 100 98-107 mmol/L Carbon Dioxide Level 23 21-32 mmol/L Anion Gap 9.0 3-11 mmol/L Blood Urea Nitrogen 10 7-18 mg/dl Creatinine 0.86 0.60-1.20 mg/dl Est Creatinine Clear Calc Drug Dose 59.8 ml/min Estimated GFR () 77.7 Estimated GFR (Non- 67.0 BUN/Creatinine Ratio 12.1 10-20 Random Glucose 143 70-99 mg/dl Calcium Level 9.0 8.5-10.1 mg/dl Bedside Glucose 148 70-90 mg/dl
[2017-12-12 14:20] VITALS: BP 122/70; PULSE 82; TEMP 36.8; O2SAT 98
[2017-12-12 16:00] VITALS: O2SAT 98
[2017-12-12 17:30] LABS: CALCIUM 9.1 mg/dl (8.5-10.1); CREATININE 1.12 mg/dl (0.60-1.20)
[2017-12-12] MEDS: METFORMIN HCL 500 MG TAB PO SCH (19:34)
[2017-12-12] MEDS: ACETAMINOPHEN 325 MG TAB PO PRN (19:35)
[2017-12-12] MEDS: HYDROXYCHLOROQUINE SULFATE 200 MG TAB PO SCH (21:13)
[2017-12-12 23:46] VITALS: BP 136/74; PULSE 71; TEMP 36.9; O2SAT 95
[2017-12-13 06:06] LABS: CALCIUM 8.9 mg/dl (8.5-10.1); CREATININE 1.01 mg/dl (0.60-1.20); POTASSIUM 4.4 mmol/L (3.5-5.1)
[2017-12-13 07:13] VITALS: BP 148/79; PULSE 77; TEMP 36.3; O2SAT 98
[2017-12-13] MEDS: DOCUSATE SODIUM 100 MG CAP PO SCH (07:56)
[2017-12-13] MEDS: SITAGLIPTIN 100 MG TAB PO SCH (07:56)
[2017-12-13] MEDS: LISINOPRIL 5 MG TAB PO SCH (07:56)
[2017-12-13] MEDS: ASPIRIN 81 MG ECTAB PO SCH (07:56)
[2017-12-13] MEDS: METFORMIN HCL 500 MG TAB PO SCH (07:56)
[2017-12-13] MEDS: ATORVASTATIN 20 MG TAB PO SCH (07:56)
[2017-12-13] MEDS: LORATADINE 10 MG TAB PO SCH (07:56)
[2017-12-13] MEDS: PANTOprazole SOD 40 MG TAB PO SCH (07:56)
[2017-12-13] MEDS: TRAMADOL HCL 50 MG TAB PO SCH (07:57)
[2017-12-13] MEDS: ACETAMINOPHEN 325 MG TAB PO PRN (08:01)
--- NOTE | 2017-12-13 11:25 | Progress Note ---
Internal Med Progress Note Date of Service: Dec 13, 2017. Provider Documentation: SUBJECTIVE: The patient was seen and examined this morning She was admitted to the with a 2 day history of lightheadedness with a history of fall about 2 weeks ago. She was noted to have a sodium of 124 with a negative CAT scan of the head. She has been feeling much better since this morning Very anxious but denies any symptoms Anxious to go home Complains of some burning pain in ankles OBJECTIVE: Vital Signs-as noted below Exam: General-she does not have any acute symptoms at rest Eyes-normal ENT-normal Neck-supple Lungs-clear to auscultate bilaterally Heart-regular S1-S2 no murmur appreciated Abdomen-benign, no masses, bowel sounds present. Extremities-no edema. Neuro-alert awake and oriented 3. No focal sensory and/or motor deficit appreciated Lab data as noted below. ASSESSMENT & PLAN: 72-year-old female with dizziness lightheadedness confusion and spaciness 2 days admitted for significant hyponatremia. Hyponatremia-relatively asymptomatic, Hypovolemic hyponatremia Likely secondary to multifactorial etiology including chronic nausea, diuretic use, and increased water intake with lower food intake in the last 2 weeks. IV fluids started cautiously with frequent checks of sodium. Consult nephrology-appreciate input. Clinically a better Monitor PRP-Sodium 132 this AM Stop IV NS and repeat Sodium at ~5 PM ,if ~132 will send her home Can have a little extra salt in diet Sodium 130 today -12/13/17 Discussed with the [employer]-on to go home ,fluid restriction to 1500 mls / day Can have a little extra salt in diet Diabetes-patient prefers to do fingersticks and upper arm with her meter. She refuses inpatient insulin and will stick to Januvia daily. If sugars increase may add Prandin to regimen. Continue to hold metformin while inpatient. Resume home Meds on discharge Chronic nausea-continue Zofran and supportive care Status post mechanical fall with sternal fracture and chest pain-patient reports improvement every day of chest pain, continue Tylenol and tramadol for pain control. CT scan in of head in the ER was negative. Hyperlipidemia-continue Lipitor DVT prophylaxis-Lovenox started Pt refused Increase Ambulation and apply SCDs Full code as discussed with her on admission Disposition-telemetry Discharge home today . Vital Signs: Date Time Temp Pulse Resp B/P (MAP) Pulse Ox O2 Delivery O2 Flow Rate FiO2 12/13/17 08:00 Room Air 12/13/17 07:13 36.3 77 16 148/79 (102) 98 Room Air 12/13/17 00:00 Room Air 12/12/17 23:46 36.9 71 18 136/74 (94) 95 Room Air 12/12/17 16:00 98 Room Air 12/12/17 14:20 36.8 82 18 122/70 (87) 98 Room Air 12/12/17 12:00 Room Air Lab Results: Results Past 24 Hours Test 12/12/17 16:32 12/12/17 16:45 12/13/17 05:26 Range/Units Bedside Glucose 130 70-90 mg/dl Sodium Level 131 130 136-145 mmol/L Potassium Level 4.0 4.4 3.5-5.1 mmol/L Chloride Level 97 99 98-107 mmol/L Carbon Dioxide Level 27 25 21-32 mmol/L Anion Gap 7.0 6.0 3-11 mmol/L Blood Urea Nitrogen 11 12 7-18 mg/dl Creatinine 1.12 1.01 0.60-1.20 mg/dl Est Creatinine Clear Calc Drug Dose 45.9 50.9 ml/min Estimated GFR () 56.4 64.0 Estimated GFR (Non- 48.7 55.2 BUN/Creatinine Ratio 9.4 12.3 10-20 Random Glucose 123 137 70-99 mg/dl Calcium Level 9.1 8.9 8.5-10.1 mg/dl
--- NOTE | 2017-12-13 11:30 | Discharge Instructions ---
Discharge Instructions Date of Service Dec 13, 2017. Admission Reason for Admission: Hyponatremia Discharge Discharge Diagnosis / Problem: Symptomatic Hypoatremia,Diabetes Type -2 Discharge Goals Goal(s): Prevent Disease Progression Activity Recommendations Activity Limitations: resume your previous activity . Instructions / Follow-Up Instructions / Follow-Up Dr Cj Carey on 12/20/17 at 10:45 AM ( Dr Govea is away).Please have Blood test on . Current Hospital Diet Patient's current hospital diet: AHA Diet (Heart Healthy), Diabetes Type 2 Diet Discharge Diet Recommended Diet: AHA Diet (Heart Healthy), Diabetes Type 2 Diet Fluid Restriction: 1500 ml (6 cups) Pending Studies Studies pending at discharge: no Laboratory Results Hemoglobin A1c Test 12/11/17 06:30 Range/Units Estimated Average Glucose 157 mg/dl Hemoglobin A1c 7.1 H 4.5-5.6 % Medical Emergencies . Who to Call and When: Medical Emergencies: If at any time you feel your situation is an emergency, please call 911 immediately. . Non-Emergent Contact Non-Emergency issues call your: Primary Care Provider . Past History Medical & Surgical History: (1) Hyponatremia (2) Diabetes mellitus, type II (3) Asthma (4) Neuropathy (5) Erythema nodosum (6) Gastroparesis (7) HTN (hypertension) (8) Inflammatory polyarthritis (9) GERD (gastroesophageal reflux disease) . "Provider Documentation" section prepared by Andrés Callaway. .
[2017-12-13] MEDS: FERROUS SULFATE 325 MG TAB PO SCH (11:53)
[2017-12-13] MEDS: CYANOCOBALAMIN 500 MCG TAB (VIT B-12) PO SCH (11:53)
[2017-12-13] MEDS: CEROVITE ADV FORMULA TAB PO SCH (11:53)
[2017-12-13] MEDS: REPAGLINIDE 1 MG TAB PO SCH (11:53)
[2017-12-13] MEDS: ASCORBIC ACID 500 MG TAB PO SCH (11:53)
[2017-12-13 11:55] VITALS: BP 148/79; PULSE 77; TEMP 36.3; O2SAT 98
--- NOTE | 2017-12-14 09:38 | Discharge Summary ---
Discharge Summary Date of Service Dec 14, 2017. Discharge Summary Admission Date: Dec 11, 2017 at 01:38 Discharge Date: Dec 13, 2017 Discharge Disposition: Home Principal Diagnosis: Symptomatic Hyponatremia,Diabetes Type -2 Secondary Diagnoses/Problems: Please see H&P and Hospital Progress note Consultations: Nephrology Medication Reconciliation Continued Medications: Albuterol Hfa (Ventolin Hfa) 200 Puffs/23081 Mcg Aers 2-4 PUFFS INH Q6H PRN for Shortness of Breath, INHALER Ascorbic Acid (Vitamin C) 500 Mg Tab 500 MG PO QAM Aspirin (Aspirin Chewable) 81 Mg Chew 81 MG PO QAM, TAB Atorvastatin (Lipitor) 20 Mg Tab 20 MG PO DAILY AT NOON, TAB Cyanocobalamin (Vitamin B12 500MCG) 500 Mcg Tab 500 MCG PO DAILY AT NOON, TAB Docusate Sodium (Colace) 100 Mg Cap 1 CAP PO BID, CAP Ferrous Sulfate (Ferrous Sulfate) 325 Mg Tab 1 TAB PO QAM Hydroxychloroquine Sulfate (Plaquenil) 200 Mg Tab 2 TAB PO QPM, TAB Lisinopril (Zestril) 5 Mg Tab 5 MG PO DAILY AT NOON, TAB Loratadine (Claritin) 10 Mg Tab 10 MG PO DAILY, TAB Meclizine Hcl (Meclizine Hcl) 25 Mg Tab 1 TAB PO TID PRN for VERTIGO, TAB Metformin Hcl (Glucophage) 1,000 Mg Tab 1000 MG PO BID, TAB Minoxidil (Topical) (Rogaine Extra Strength Fo) 5 % Radha 1 DOSE PRN Naproxen (Naprosyn) 500 Mg Tab 500 MG PO BID, TAB morning and noon Ocuvite Preservision (Ocuvite Preservision) 1 Tab Tab 1 TAB PO DAILY, TAB Omeprazole (Prilosec) 20 Mg Capcr 20 MG PO AMHS, CAP Ondansetron Hcl (Zofran) 4 Mg Tab 4 MG PO Q8H PRN for Nausea, TAB Prednisone (Prednisone) 5 Mg Tab 5 MG PO DAILY PRN for "ARTHRITIC FLARE UP", TAB Repaglinide (Prandin) 2 Mg Tab 2 MG PO NOON, TAB Saline (Saline Nasal Tuthill) 0.65 % Spr 1-2 SPRAYS ANILA UD PRN for DRYNESS Sitagliptin Phosphate (Januvia) 100 Mg Tab 100 MG PO QAM, TAB Temazepam (Restoril) 15 Mg Cap 15 MG PO HS PRN for Sleep, CAP Tramadol (Ultram) 50 Mg Tab 50 MG PO BID, TAB morning and noon Admission Information HPI (per Admitting provider): The patient is a 72-year-old diabetic female who presents to the ER with complaints of dizziness, lightheadedness and blurred vision for the past 2 days. She reports suffering a mechanical fall 2 weeks ago where she had hit her head and fractured her sternum. She has been managed by her outpatient PCP for sternal pain with Tylenol tramadol and naproxen. She reports a history of chronic nausea and takes Zofran regularly. She reports drinking water excessively to stay hydrated but has not been eating as robustly as she usually does. She states that she has felt spacey and seems to have difficulties remembering thanks this has persisted for approximately 2 days. She does have some mild pain in the back of her head. CT scan this evening in the ER was negative for acute intracranial abnormality. She does not take anticoagulants. She reports being started on hydrocodone and then baclofen as trials to manage her sternal pain in the last 2 weeks, however these made her more spacey and she stopped them subsequently. Also in the last 2 weeks, she has suffered significant insomnia and restless leg syndrome secondary to the pain in her chest. She came to the ER this evening to obtain a CT scan of her head was found to have a sodium of 124. Review of systems is otherwise negative including no cough fever chills abdominal pain diarrhea shortness of breath or other symptoms. We did discuss her concerns of receiving insulin; she does not want to receive insulin as an inpatient. We discussed that she would receive Januvia with Metformin and Prandin held. In the event that her sugars increase , Prandin can be restarted. Of note she is on Lasix as needed and reports taking it 2 weeks ago one time. She felt at that time she had some leg swelling which is not present today. Past Medical/Surgical History Medical Problems: (1) Diabetes mellitus, type II Status: Chronic (2) Disc degeneration, lumbar Status: Chronic (3) Erythema nodosum Status: Chronic (4) Gastroparesis Status: Chronic (5) GERD (gastroesophageal reflux disease) Status: Chronic (6) HTN (hypertension) Status: Chronic (7) Hypertension Status: Chronic (8) Inflammatory polyarthritis Status: Chronic (9) Osteoporosis Status: Chronic Family History CVA MOTHER FH: lung cancer FATHER FH: stomach cancer MOTHER Type 2 diabetes mellitus BROTHER Social History Smoking Status: Former Smoker (In college only) Smokeless Tobacco Use: No Alcohol Use: none Drug Use: none Marital Status: Housing status: lives with significant other Occupational Status: retired Immunizations History of Influenza Vaccine: Yes History of Tetanus Vaccine?: Yes History of Pneumococcal: Yes History of Hepatitis B Vaccine: No Allergies Coded Allergies: Latex1 -Allergic Contact Dermititis (Verified Allergy, Unknown, SWELLING WITH MUCOUS MEMBRANES, 12/11/17) Sulfa Drugs (Verified Adverse Reaction, Unknown, "COMING OUT THROUGH MY PORES", 12/11/17) Home Medications Scheduled Ascorbic Acid (Vitamin C), 500 MG PO QAM Aspirin (Aspirin Chewable), 81 MG PO QAM Atorvastatin (Lipitor), 20 MG PO DAILY AT NOON Cyanocobalamin (Vitamin B12 500MCG), 500 MCG PO DAILY AT NOON Docusate Sodium (Colace), 1 CAP PO BID Ferrous Sulfate (Ferrous Sulfate), 1 TAB PO QAM Hydroxychloroquine Sulfate (Plaquenil), 2 TAB PO QPM Lisinopril (Zestril), 5 MG PO DAILY AT NOON Loratadine (Claritin), 10 MG PO DAILY Metformin Hcl (Glucophage), 1,000 MG PO BID Minoxidil (Topical) (Rogaine Extra Strength Fo), 1 DOSE PRN Naproxen (Naprosyn), 500 MG PO BID Ocuvite Preservision (Ocuvite Preservision), 1 TAB PO DAILY Omeprazole (Prilosec), 20 MG PO AMHS Repaglinide (Prandin), 2 MG PO NOON Sitagliptin Phosphate (Januvia), 100 MG PO QAM Tramadol (Ultram), 50 MG PO BID Scheduled PRN Albuterol Hfa (Ventolin Hfa), 2-4 PUFFS INH Q6H PRN for Shortness of Breath Meclizine Hcl (Meclizine Hcl), 1 TAB PO TID PRN for VERTIGO Ondansetron Hcl (Zofran), 4 MG PO Q8H PRN for Nausea Prednisone (Prednisone), 5 MG PO DAILY PRN for "ARTHRITIC FLARE UP" Saline (Saline Nasal Tuthill), 1-2 SPRAYS ANILA UD PRN for DRYNESS Temazepam (Restoril), 15 MG PO HS PRN for Sleep Review of Systems At least 10 systems were reviewed and negative except as indicated in HPI. Physical Exam H&P v2 Physical Exam Vital Signs Date Time Temp Pulse Resp B/P (MAP) Pulse Ox O2 Delivery O2 Flow Rate FiO2 12/11/17 01:45 98 18 193/80 97 190/91 158/81 12/11/17 01:45 105 20 158/81 99 Room Air 12/10/17 22:49 90 18 162/75 97 Room Air 12/10/17 21:20 36.7 102 19 171/78 97 Room Air General Appearance: WD/WN, no apparent distress Head: normocephalic, atraumatic Eyes: normal inspection, PERRL, sclerae normal ENT: normal ENT inspection, hearing grossly normal, pharynx normal, + pertinent finding (Mucous membranes dry) Neck: supple, trachea midline Respiratory/Chest: lungs clear, normal breath sounds, no respiratory distress, no accessory muscle use, + pertinent finding (Tenderness to palpation in center of chest, well-healed ecchymosis on right breast.) Cardiovascular: regular rate, rhythm, no edema, no gallop, no JVD, no murmur, normal peripheral pulses Abdomen/GI: normal bowel sounds, non tender, soft, no organomegaly Extremities/Musculoskelatal: normal inspection, no calf tenderness, no pedal edema, normal range of motion Neurologic/Psych: group account director II-XII nml as tested, no motor/sensory deficits, alert, normal mood/affect, oriented x 3 Skin: normal color, no rash Diagnostics H&P v2 Diagnostics Laboratory Results 12/10/17 23:30 Red Blood Count 3.59, Mean Corpuscular Volume 90.5, Mean Corpuscular Hemoglobin 32.9, Mean Corpuscular Hemoglobin Concent 36.3, Mean Platelet Volume 8.2, Neutrophils (%) (Auto) 57.8, Lymphocytes (%) (Auto) 24.0, Monocytes (%) (Auto) 15.4, Eosinophils (%) (Auto) 1.3, Basophils (%) (Auto) 0.3, Neutrophils # (Auto ) 4.46, Lymphocytes # (Auto) 1.85, Monocytes # (Auto) 1.19, Eosinophils # (Auto ) 0.10, Basophils # (Auto) 0.02 12/10/17 23:30 Test 12/10/17 23:30 12/11/17 01:12 White Blood Count 7.71 K/uL (4.8-10.8) Red Blood Count 3.59 M/uL (4.2-5.4) Hemoglobin 11.8 g/dL (12.0-16.0) Hematocrit 32.5 % (37-47) Mean Corpuscular Volume 90.5 fL (80-100) Mean Corpuscular Hemoglobin 32.9 pg (25-34) Mean Corpuscular Hemoglobin Concent 36.3 g/dl (32-36) Platelet Count 204 K/uL (130-400) Mean Platelet Volume 8.2 fL (7.4-10.4) Neutrophils (%) (Auto) 57.8 % Lymphocytes (%) (Auto) 24.0 % Monocytes (%) (Auto) 15.4 % Eosinophils (%) (Auto) 1.3 % Basophils (%) (Auto) 0.3 % Neutrophils # (Auto) 4.46 K/uL (1.4-6.5) Lymphocytes # (Auto) 1.85 K/uL (1.2-3.4) Monocytes # (Auto) 1.19 K/uL (0.11-0.59) Eosinophils # (Auto) 0.10 K/uL (0-0.5) Basophils # (Auto) 0.02 K/uL (0-0.2) RDW Standard Deviation 50.1 fL (36.4-46.3) RDW Coefficient of Variation 15.1 % (11.5-14.5) Immature Granulocyte % (Auto) 1.2 % Immature Granulocyte # (Auto) 0.09 K/uL (0.00-0.02) Anion Gap 8.0 mmol/L (3-11) Est Creatinine Clear Calc Drug Dose 55.3 ml/min Estimated GFR () 70.7 Estimated GFR (Non- 61.0 BUN/Creatinine Ratio 18.5 (10-20) Osmolality 263 mOsm/kg (280-300) Calcium Level 9.2 mg/dl (8.5-10.1) Total Bilirubin 0.6 mg/dl (0.2-1) Aspartate Amino Transf (AST/SGOT) 9 U/L (15-37) Alanine Aminotransferase (ALT/SGPT) 21 U/L (12-78) Alkaline Phosphatase 58 U/L (45-117) Total Protein 7.2 gm/dl (6.4-8.2) Albumin 4.3 gm/dl (3.4-5.0) Globulin 2.9 gm/dl (2.5-4.0) Albumin/Globulin Ratio 1.5 (0.9-2) Urine Color YELLOW Urine Appearance CLEAR (CLEAR) Urine pH 5.0 (4.5-7.5) Urine Specific Sage 1.020 (1.000-1.030) Urine Protein NEG (NEG) Urine Glucose (UA) NEG (NEG) Urine Ketones TRACE (NEG) Urine Occult Blood NEG (NEG) Urine Nitrite NEG (NEG) Urine Bilirubin NEG (NEG) Urine Urobilinogen NEG (NEG) Urine Leukocyte Esterase SMALL (NEG) Urine WBC (Auto) 5-10 /hpf (0-5) Urine RBC (Auto) 0-4 /hpf (0-4) Urine Hyaline Casts (Auto) 1-5 /lpf (0-5) Urine Epithelial Cells (Auto) 10-20 /lpf (0-5) Urine Bacteria (Auto) NEG (NEG) Urine Osmolality 516 mOms/kg (500-800) Results Past 24 Hours Test 12/10/17 23:30 12/11/17 01:12 Range/Units White Blood Count 7.71 4.8-10.8 K/uL Red Blood Count 3.59 4.2-5.4 M/uL Hemoglobin 11.8 12.0-16.0 g/dL Hematocrit 32.5 37-47 % Mean Corpuscular Volume 90.5 80-100 fL Mean Corpuscular Hemoglobin 32.9 25-34 pg Mean Corpuscular Hemoglobin Concent 36.3 32-36 g/dl Platelet Count 204 130-400 K/uL Mean Platelet Volume 8.2 7.4-10.4 fL Neutrophils (%) (Auto) 57.8 % Lymphocytes (%) (Auto) 24.0 % Monocytes (%) (Auto) 15.4 % Eosinophils (%) (Auto) 1.3 % Basophils (%) (Auto) 0.3 % Neutrophils # (Auto) 4.46 1.4-6.5 K/uL Lymphocytes # (Auto) 1.85 1.2-3.4 K/uL Monocytes # (Auto) 1.19 0.11-0.59 K/uL Eosinophils # (Auto) 0.10 0-0.5 K/uL Basophils # (Auto) 0.02 0-0.2 K/uL RDW Standard Deviation 50.1 36.4-46.3 fL RDW Coefficient of Variation 15.1 11.5-14.5 % Immature Granulocyte % (Auto) 1.2 % Immature Granulocyte # (Auto) 0.09 0.00-0.02 K/uL Sodium Level 124 136-145 mmol/L Potassium Level 4.2 3.5-5.1 mmol/L Chloride Level 91 98-107 mmol/L Carbon Dioxide Level 25 21-32 mmol/L Anion Gap 8.0 3-11 mmol/L Blood Urea Nitrogen 17 7-18 mg/dl Creatinine 0.93 0.60-1.20 mg/dl Est Creatinine Clear Calc Drug Dose 55.3 ml/min Estimated GFR () 70.7 Estimated GFR (Non- 61.0 BUN/Creatinine Ratio 18.5 10-20 Random Glucose 156 70-99 mg/dl Osmolality 263 280-300 mOsm/kg Calcium Level 9.2 8.5-10.1 mg/dl Total Bilirubin 0.6 0.2-1 mg/dl Aspartate Amino Transf (AST/SGOT) 9 15-37 U/L Alanine Aminotransferase (ALT/SGPT) 21 12-78 U/L Alkaline Phosphatase 58 45-117 U/L Total Protein 7.2 6.4-8.2 gm/dl Albumin 4.3 3.4-5.0 gm/dl Globulin 2.9 2.5-4.0 gm/dl Albumin/Globulin Ratio 1.5 0.9-2 Urine Color YELLOW Urine Appearance CLEAR CLEAR Urine pH 5.0 4.5-7.5 Urine Specific Sage 1.020 1.000-1.030 Urine Protein NEG NEG Urine Glucose (UA) NEG NEG Urine Ketones TRACE NEG Urine Occult Blood NEG NEG Urine Nitrite NEG NEG Urine Bilirubin NEG NEG Urine Urobilinogen NEG NEG Urine Leukocyte Esterase SMALL NEG Urine WBC (Auto) 5-10 0-5 /hpf Urine RBC (Auto) 0-4 0-4 /hpf Urine Hyaline Casts (Auto) 1-5 0-5 /lpf Urine Epithelial Cells (Auto) 10-20 0-5 /lpf Urine Bacteria (Auto) NEG NEG Urine Osmolality 516 500-800 mOms/kg Diagnostic Radiology CT HEAD WITHOUT CONTRAST (CT) CLINICAL HISTORY: Head trauma. Dizziness. Headache. COMPARISON STUDY: No previous studies for comparison. TECHNIQUE: Axial CT of the brain is performed from the vertex to the skull base. IV contrast was not administered for this examination. A dose lowering technique was utilized adhering to the principles of ALARA. CT DOSE: 537.48 mGy.cm FINDINGS: No intra or extra-axial mass lesions are visualized. There is no CT evidence of acute cortical infarction. There is no evidence of midline shift. There is no acute hemorrhage. No calvarial fractures are visualized. There are patchy white matter hypodensities likely on a small vessel basis. There is no evidence of pathologic ventricular dilatation. There is no evidence of acute sinusitis IMPRESSION: No acute intracranial findings CXR normal (Wet read) Normal EKG Impression H&P v2 Impression Assessment and Plan 72-year-old female with dizziness lightheadedness confusion and spaciness 2 days admitted for significant hyponatremia. 1. Hyponatremia-relatively asymptomatic, likely secondary to multifactorial etiology including chronic nausea, diuretic use, and increased water intake with lower food intake in the last 2 weeks. IV fluids started cautiously with frequent checks of sodium. Consult nephrology. Plan to not increase sodium more than 8 points in 24 hours. Of note orthostatics are positive indicating patient is volume down/hypovolemic. Neurologic exam is unremarkable. With unsteady gait reported, PT OT asked to assess 2. Diabetes-patient prefers to do fingersticks and upper arm with her meter. She will notify nurses of results so they can record them. She refuses inpatient insulin and will stick to Januvia daily. If sugars increase may add Prandin to regimen. Continue to hold metformin while inpatient. 3. Chronic nausea-continue Zofran and supportive care 4. Status post mechanical fall with sternal fracture and chest pain-patient reports improvement every day of chest pain, continue Tylenol and tramadol for pain control. CT scan in of head in the ER was negative. 5. Hyperlipidemia-continue Lipitor DVT prophylaxis-Lovenox Full code as discussed with her on admission Disposition[facility] Status VTE Prophylaxis Will order VTE Prophylaxis: Yes Physical Exam (per Admitting): General Appearance: WD/WN, no apparent distress Head: normocephalic, atraumatic Eyes: normal inspection, PERRL, sclerae normal ENT: normal ENT inspection, hearing grossly normal, pharynx normal, + pertinent finding (Mucous membranes dry) Neck: supple, trachea midline Respiratory/Chest: lungs clear, normal breath sounds, no respiratory distress, no accessory muscle use, + pertinent finding (Tenderness to palpation in center of chest, well-healed ecchymosis on right breast.) Cardiovascular: regular rate, rhythm, no edema, no gallop, no JVD, no murmur , normal peripheral pulses Abdomen/GI: normal bowel sounds, non tender, soft, no organomegaly Extremities/Musculoskelatal: normal inspection, no calf tenderness, no pedal edema, normal range of motion Neurologic/Psych: group account director II-XII nml as tested, no motor/sensory deficits, alert , normal mood/affect, oriented x 3 Skin: normal color, no rash Hospital Course 72-year-old female with dizziness lightheadedness confusion and spaciness 2 days admitted for significant hyponatremia. Hyponatremia-relatively asymptomatic, Hypovolemic hyponatremia Likely secondary to multifactorial etiology including chronic nausea, diuretic use, and increased water intake with lower food intake in the last 2 weeks. IV fluids started cautiously with frequent checks of sodium. Consult nephrology-appreciate input. Clinically a better Monitor PRP-Sodium 132 this AM Stop IV NS and repeat Sodium at ~5 PM ,if ~132 will send her home Can have a little extra salt in diet Sodium 130 today -12/13/17 Discussed with the Licensed Certified Orthotist-on to go home ,fluid restriction to 1500 mls / day Can have a little extra salt in diet Diabetes-patient prefers to do fingersticks and upper arm with her meter. She refuses inpatient insulin and will stick to Januvia daily. If sugars increase may add Prandin to regimen. Continue to hold metformin while inpatient. Resume home Meds on discharge Chronic nausea-continue Zofran and supportive care Status post mechanical fall with sternal fracture and chest pain-patient reports improvement every day of chest pain, continue Tylenol and tramadol for pain control. CT scan in of head in the ER was negative. Hyperlipidemia-continue Lipitor DVT prophylaxis-Lovenox started Pt refused Increase Ambulation and apply SCDs Full code as discussed with her on admission Disposition-telemetry Discharge home today . Total time spent on discharge = 35 minutes This includes examination of the patient, discharge planning, medication reconciliation, and communication with other providers. Discharge Instructions Date of Service Dec 13, 2017. Admission Reason for Admission: Hyponatremia Discharge Discharge Diagnosis / Problem: Symptomatic Hypoatremia,Diabetes Type -2 Discharge Goals Goal(s): Prevent Disease Progression Activity Recommendations Activity Limitations: resume your previous activity . Instructions / Follow-Up Instructions / Follow-Up Dr Cj Carey on 12/20/17 at 10:45 AM ( Dr Govea is away).Please have Blood test on . Current Hospital Diet Patient's current hospital diet: AHA Diet (Heart Healthy), Diabetes Type 2 Diet Discharge Diet Recommended Diet: AHA Diet (Heart Healthy), Diabetes Type 2 Diet Fluid Restriction: 1500 ml (6 cups) Pending Studies Studies pending at discharge: no Laboratory Results Hemoglobin A1c Test 12/11/17 06:30 Range/Units Estimated Average Glucose 157 mg/dl Hemoglobin A1c 7.1 H 4.5-5.6 % Medical Emergencies . Who to Call and When: Medical Emergencies: If at any time you feel your situation is an emergency, please call 911 immediately. . Non-Emergent Contact Non-Emergency issues call your: Primary Care Provider . Past History Medical & Surgical History: (1) Hyponatremia (2) Diabetes mellitus, type II (3) Asthma (4) Neuropathy (5) Erythema nodosum (6) Gastroparesis (7) HTN (hypertension) (8) Inflammatory polyarthritis (9) GERD (gastroesophageal reflux disease) . "Provider Documentation" section prepared by Andrés Callaway. . <Electronically signed by Andrés Callaway M.D.> Signed: 12/13/17 [id number] Additional Copies To Parrish Govea D.O.
== END 2017-12-13 13:00 | disposition home or self-care (01) | DRG 641 ==
LOC: C.EDB 21:16 → C.MED 12-11 01:38 → CANRESERV 12-11 01:55 → ENRESERV 12-11 01:55
PROVIDERS: ADMIT Hospitalist; ATTEND Internal Medicine
DX: E87.1 Hypo-osmolality and hyponatremia (principal); E86.1 Hypovolemia; E11.43 Type 2 diabetes mellitus with diabetic autonomic (poly)neuropathy; R11.0 Nausea; R51 Headache; S22.20XD Unspecified fracture of sternum, subsequent encounter for fracture with routine healing; W19.XXXD Unspecified fall, subsequent encounter; I10 Essential (primary) hypertension; R26.9 Unspecified abnormalities of gait and mobility; E78.5 Hyperlipidemia, unspecified; K21.9 Gastro-esophageal reflux disease without esophagitis; L52 Erythema nodosum; Z87.891 Personal history of nicotine dependence; Z79.1 Long term (current) use of non-steroidal anti-inflammatories (NSAID); Z79.82 Long term (current) use of aspirin; Z79.84 Long term (current) use of oral hypoglycemic drugs; Z79.891 Long term (current) use of opiate analgesic; Z79.899 Other long term (current) drug therapy; Z91.040 Latex allergy status; Z88.2 Allergy status to sulfonamides; Z82.3 Family history of stroke; Z83.3 Family history of diabetes mellitus; Z80.0 Family history of malignant neoplasm of digestive organs; Z80.1 Family history of malignant neoplasm of trachea, bronchus and lung

== ENCOUNTER → 2017-12-16 | Outpatient (CLI) | payer BC ==
[~2017-12-16] MED LIST changes: +SALI1SPR3 NAE
== END | disposition home or self-care (01) ==
LOC: C.LAB 12:51
PROVIDERS: ATTEND Internal Medicine
DX: R19.7 Diarrhea, unspecified (principal)